=== PATIENT | female | born 1960 | race Caucasian/White ===

== ENCOUNTER 2021-04-09 10:42 | Outpatient (REF) | payer MEDICAID, SELFPAY ==
[2021-04-13 22:27] LABS: Stone Source KIDNEY STONE
== END 2021-04-09 10:43 | disposition home or self-care (01) ==
LOC: HO.LNP 10:42
PROVIDERS: Urology; PCP Internal Medicine Sports Medicine
DX: N20.0 Calculus of kidney (principal); Z87.442 Personal history of urinary calculi
CPT/HCPCS: 51798; 81002; 82365; 88300; 99212

== ENCOUNTER → 2021-07-16 13:01 | Outpatient (BNVA) | payer MEDICAID, SELFPAY | PROVIDERS: PCP Internal Medicine Sports Medicine; Referring Provider Nurse Practitioner Family; Visit Provider Internal Medicine | DX: I25.10 Atherosclerotic heart disease of native coronary artery without angina pectoris (principal); R07.2 Precordial pain; I10 Essential (primary) hypertension; I25.2 Old myocardial infarction; Z82.49 Family history of ischemic heart disease and other diseases of the circulatory system; Z88.6 Allergy status to analgesic agent; Z88.0 Allergy status to penicillin; Z79.899 Other long term (current) drug therapy | CPT/HCPCS: 93005; 99202 ==

== ENCOUNTER → 2021-07-18 09:41 | Outpatient (BNVA) | payer MEDICAID, SELFPAY | PROVIDERS: PCP Nurse Practitioner Family; Visit Provider Nurse Practitioner Family | DX: M79.7 Fibromyalgia (principal); M96.1 Postlaminectomy syndrome, not elsewhere classified; M54.16 Radiculopathy, lumbar region; M47.816 Spondylosis without myelopathy or radiculopathy, lumbar region | CPT/HCPCS: 99202 ==

== ENCOUNTER 2021-08-02 13:46 | Outpatient (REF) | payer MEDICAID, SELFPAY ==
--- NOTE | ~2021-08-02 | US_ITS ---
EXAMINATION: US ABDOMEN COMPLETE CLINICAL INFORMATION: Family history of fatty liver. COMPARISON: None TECHNIQUE: Real-time imaging of the abdominal viscera. FINDINGS: PANCREAS: Not well visualized due to bowel gas ABDOMINAL AORTA: The proximal, mid, and distal segments are normal in caliber. INFERIOR VENA CAVA: Visualized portions are normal. LIVER: The liver is normal in size. The liver contour is normal. Liver echotexture is increased. No focal hepatic lesion. There is no intrahepatic biliary duct dilatation seen. GALLBLADDER: Normal. The gallbladder is physiologically distended without evidence of stones, sludge, polyps, wall thickening or pericholecystic fluid. COMMON BILE DUCT: Normal in caliber measuring 0.2 cm in diameter. RIGHT KIDNEY: There are multiple stones. Largest measures 1.1 x 0.5 x 0.8 cm in the upper pole. No hydronephrosis or focal parenchymal lesions. The kidney measures 9.7 cm in maximum dimension. LEFT KIDNEY: There are multiple stones. Largest measures 6 x 3 x 7 mm in the midpole. No hydronephrosis or focal parenchymal lesions. The kidney measures 10.0 cm in maximum dimension. SPLEEN: The spleen is slightly enlarged. The spleen measures 14.0 cm in maximum dimension. FREE FLUID: None. US/US abdomen complete IMPRESSION: Echogenic liver probably representing fatty infiltration. Enlarged spleen. Multiple bilateral renal stones. Limited visualization of the pancreas.
== END 2021-08-02 13:47 | disposition home or self-care (01) ==
LOC: HO.HMGCX 13:46
PROVIDERS: Visit Provider Nurse Practitioner Family
DX: K75.0 Abscess of liver (principal)
CPT/HCPCS: 76700

== ENCOUNTER → 2021-09-04 10:24 | Outpatient (BNVA) | payer MEDICAID, SELFPAY | PROVIDERS: PCP Nurse Practitioner Family; Referring Provider Nurse Practitioner Family; Visit Provider Internal Medicine Cardiovascular Disease | DX: R07.9 Chest pain, unspecified (principal); I10 Essential (primary) hypertension | CPT/HCPCS: 99212 ==

== ENCOUNTER 2021-12-26 09:55 | Outpatient (REF) | payer MEDICAID, SELFPAY ==
--- NOTE | ~2021-12-26 | MM_ITS ---
EXAMINATION: BONE DENSITOMETRY CLINICAL INDICATION: Osteoporosis. COMPARISON: None (current study represents initial baseline exam). TECHNIQUE: Using a [employer] DXA System (software version: 13.1) manufactured by [employer], dual-energy x-ray absorptiometry was performed of the lumbar spine and left hip. The images are of good technical quality. Summary results are attached. FINDINGS: AP SPINE L1-L2 (excluding L3 and L4): The data of L1-L4 has been changed to exclude the L3 and L4 vertebral bodies, because fusion hardware at these levels may cause overestimation of lumbar spine density. BMD 1.173 g/cm2, Z-score 1.3, T-score 0.1, normal. LEFT FEMUR, NECK: BMD 0.833 g/cm2, Z-score -0.2, T-score -1.5, osteopenia. LEFT FEMUR, TOTAL: BMD 1.066 g/cm2, Z-score 1.4, T-score 0.5, normal. IDENTIFIED RISK FACTORS: Rheumatoid arthritis. Osteoporosis. Renal disease. Menopause. Hysterectomy. Bilateral oophorectomy. HISTORY OF FRACTURE: None listed. MEDICATIONS: Vitamin D. MM/XR DEXA axial skeleton IMPRESSION: 1. DIAGNOSIS: Osteopenia based on the lowest T-score value of -1.5 in the femoral neck applying World Health Organization criteria. 2. 10-YEAR FRACTURE RISK PREDICTION, FRAX: Major osteoporotic fracture (clinical spine, forearm, hip or shoulder) 5.6%. Hip fracture 0.5%. 3. Treatment Recommendations: NOF guidelines recommend consideration for treatment in postmenopausal women and men age 50 and older presenting with the following: -A hip or vertebral (clinical or morphometric) fracture. -T-score less than or equal to -2.5 at the femoral neck or spine after appropriate evaluation to exclude secondary causes. -Low bone mass at the hip or spine and a 10-year fracture probability by FRAX of greater than or equal to 3% for hip fracture or greater than or equal to 20% for major osteoporotic fracture based on the [place] adapted WHO algorithm. 4. Other Recommendations: All treatment decisions require clinical judgment and consideration of individual patient factors, including patient preferences, comorbidities, previous drug use, risk factors not captured in the FRAX model (e.g. frailty, falls, vitamin D deficiency, increased bone turnover, interval significant decline in bone density) and possible under or overestimation of fracture risk by FRAX. Additional medical evaluation for secondary cause of low bone mineral density may be appropriate. FUTURE SCAN RECOMMENDATION: People with diagnosed cases of osteoporosis or at high risk for fracture should have regular bone mineral density tests. For patients eligible for Medicare, routine testing is allowed once every 2 years. The testing frequency can be increased to one year for patients who have rapidly progressing disease, those who are receiving or discontinuing medical therapy to restore bone mass, or have additional risk factors.
== END 2021-12-26 09:56 | disposition home or self-care (01) ==
LOC: HO.MAMMO 09:55
PROVIDERS: PCP Registered Nurse; Visit Provider Registered Nurse
DX: Z13.820 Encounter for screening for osteoporosis (principal); M81.0 Age-related osteoporosis without current pathological fracture; Z78.0 Asymptomatic menopausal state
CPT/HCPCS: 77080

== ENCOUNTER 2022-01-28 17:30 | Outpatient (REF) | payer MEDICAID, SELFPAY | END 2022-01-28 17:31 | disposition home or self-care (01) | LOC: HO.HOSX 17:30 | PROVIDERS: Visit Provider Orthopaedic Surgery | DX: Z13.89 Encounter for screening for other disorder (principal) ==

== ENCOUNTER 2022-02-10 11:12 | Outpatient (REF) | payer MEDICAID, SELFPAY ==
--- NOTE | ~2022-02-10 | XR_ITS ---
EXAMINATION: XR HAND, RIGHT CLINICAL INFORMATION: Right hand pain COMPARISON: None TECHNIQUE: PA, lateral, and oblique views of the right hand. FINDINGS: Some minimal degenerative changes are seen at the DIP joints and the first metacarpal carpal joint. No fractures or subluxations are seen. In the area of the patient's pain, no significant abnormality is detected. XR/XR hand RT min 3V IMPRESSION: Mild degenerative changes as described above. No acute finding.
== END 2022-02-10 11:13 | disposition home or self-care (01) ==
LOC: HO.HOSX 11:12
PROVIDERS: Visit Provider Orthopaedic Surgery
DX: Z13.89 Encounter for screening for other disorder (principal)

== ENCOUNTER → 2022-02-12 10:52 | Outpatient (BNVA) | payer MEDICAID, SELFPAY | PROVIDERS: PCP Registered Nurse; Visit Provider Orthopaedic Surgery | DX: M65.311 Trigger thumb, right thumb (principal) | CPT/HCPCS: 73130; 99202 ==

== ENCOUNTER 2022-03-05 09:52 | Outpatient (REF) | payer MEDICAID, SELFPAY ==
--- NOTE | ~2022-03-05 | MM_ITS ---
EXAMINATION: MM SCREENING DIGITAL BREAST TOMOSYNTHESIS, BILATERAL CLINICAL INFORMATION: Screening. Asymptomatic. The lifetime risk of breast cancer based on the Tyrer-Cuzick Model is 5%. COMPARISON: Outside mammography: 02/02/2021, 02/20/2020, 01/09/2020 ([facility]) TECHNIQUE: Digital breast tomosynthesis is performed in both the craniocaudal and mediolateral oblique views along with computer-aided detection (CAD). Synthesized 2D images are generated from the tomosynthesis. FINDINGS: The breasts are almost entirely fatty (ACR BI-RADS breast composition Category a). Background stromal markings are similar to outside studies. There is no interval developing density or architectural abnormality. No abnormal calcifications. Again, there are scattered predominantly ductal secretory calcifications. Right breast has biopsy clip marker mid lower inner quadrant. The axilla and skin contours are unremarkable. MM/MM tomosynthesis screening BI IMPRESSION: No mammographic evidence of malignancy. ASSESSMENT: BI-RADS 2: Benign RECOMMENDATION: Routine annual mammography screening. This patient's information was entered into a reminder system with a target due date for their next mammogram.
== END 2022-03-05 09:53 | disposition home or self-care (01) ==
LOC: HO.MAMMO 09:52
PROVIDERS: PCP Registered Nurse; Visit Provider Registered Nurse
DX: Z12.31 Encounter for screening mammogram for malignant neoplasm of breast (principal)
CPT/HCPCS: 77063; 77067

== ENCOUNTER → 2022-04-16 12:42 | Outpatient (BNVA) | payer MEDICAID, SELFPAY | PROVIDERS: PCP Registered Nurse; Referring Provider Registered Nurse; Visit Provider Internal Medicine | DX: R07.9 Chest pain, unspecified (principal); I10 Essential (primary) hypertension | CPT/HCPCS: 99212 ==

== ENCOUNTER → 2022-06-05 13:38 | Outpatient (BNV) | payer MEDICAID, SELFPAY | PROVIDERS: PCP Registered Nurse; Visit Provider Internal Medicine | DX: D69.6 Thrombocytopenia, unspecified (principal); R16.1 Splenomegaly, not elsewhere classified | CPT/HCPCS: 99204; 99213; 99214 ==

== ENCOUNTER 2022-06-16 09:05 | Outpatient (REF) | payer MEDICAID, SELFPAY | END 2022-06-16 09:06 | disposition home or self-care (01) | LOC: HO.XRAY 09:05 | PROVIDERS: PCP Registered Nurse; Visit Provider Internal Medicine | DX: Z13.89 Encounter for screening for other disorder (principal) ==

== ENCOUNTER 2022-06-16 09:15 | Outpatient (REF) | payer MEDICAID, SELFPAY ==
--- NOTE | ~2022-06-16 | US_ITS ---
EXAMINATION: US ABDOMEN COMPLETE CLINICAL INFORMATION: Splenomegaly?, thrombocytopenia. COMPARISON: Ultrasound abdomen complete 08/02/2021. TECHNIQUE: Real-time imaging of the abdominal viscera. FINDINGS: PANCREAS: Normal. ABDOMINAL AORTA: The proximal, mid, and distal segments are normal in caliber. INFERIOR VENA CAVA: Visualized portions are normal. LIVER: The liver is normal in size. The liver contour is normal. There is diffuse increased liver parenchymal echogenicity, consistent with infiltrative hepatocellular disease. No focal hepatic lesion. There is no intrahepatic biliary duct dilatation seen. GALLBLADDER: Normal. The gallbladder is physiologically distended without evidence of stones, sludge, polyps, wall thickening or pericholecystic fluid. COMMON BILE DUCT: Normal in caliber measuring 0.3 cm in diameter. RIGHT KIDNEY: There are 4 calculi measuring up to 0.8 cm with no evidence of obstruction. No hydronephrosis or focal parenchymal lesions. The kidney measures 9.2 cm in maximum dimension. LEFT KIDNEY: There are 2 calculi measuring up to 0.8 cm without evidence of obstruction. No hydronephrosis or focal parenchymal lesions. The kidney measures 9.2 cm in maximum dimension. SPLEEN: Enlarged. The spleen measures 13.8 cm in maximum dimension. FREE FLUID: None. US/US abdomen complete IMPRESSION: Diffuse increased liver parenchymal echogenicity consistent with hepatocellular disease, most commonly due to fatty infiltration. Splenomegaly measuring 13.8 cm. Bilateral renal calculi without evidence of obstruction.
== END 2022-06-16 09:16 | disposition home or self-care (01) ==
LOC: HO.US 09:15
PROVIDERS: Visit Provider Internal Medicine
DX: R16.1 Splenomegaly, not elsewhere classified (principal); D69.6 Thrombocytopenia, unspecified
CPT/HCPCS: 76700

== ENCOUNTER 2022-10-15 10:43 | Outpatient (REF) | payer MEDICAID, SELFPAY ==
[2022-10-15 14:04] LABS: Estimated Average Glucose 108 mg/dL; Hemoglobin A1c % 5.4 %
[2022-10-15 14:22] LABS: Cholesterol 135 mg/dL; HDL Cholesterol 55 mg/dL; LDL Cholesterol Calculated 70 mg/dl; Triglycerides 53 mg/dL
[2022-10-15 14:30] LABS: ~HepC Num1 0.21 S/CO (0.00-0.79); ~Hepatitis C Antibody Nonreactive (Nonreactive)
[2022-10-15 14:54] LABS: Syphilis Screen Nonreactive (Nonreactive)
[2022-10-18 12:44] LABS: HIV RNA PCR Qn Copies NOT DETECTED copies/mL (NOT DETECTED); HIV RNA PCR Qn Log Copies NOT DETECTED (NOT DETECTED)
== END 2022-10-15 10:44 | disposition home or self-care (01) ==
LOC: HO.HHCL 10:43
PROVIDERS: Visit Provider Registered Nurse
DX: Z00.00 Encounter for general adult medical examination without abnormal findings (principal); Z11.4 Encounter for screening for human immunodeficiency virus [HIV]; Z11.3 Encounter for screening for infections with a predominantly sexual mode of transmission
CPT/HCPCS: 36415; 80061; 83036; 86780; 86803; 87536

== ENCOUNTER 2022-11-03 20:23 | Outpatient (REF) | payer MEDICAID, SELFPAY | END 2022-11-03 20:24 | disposition home or self-care (01) | LOC: HO.HHCL 20:23 | PROVIDERS: Visit Provider Advanced Practice Midwife | DX: R82.90 Unspecified abnormal findings in urine (principal) | CPT/HCPCS: 87086; 87088; 87186 ==

== ENCOUNTER 2022-11-03 20:54 | Outpatient (REF) | payer MEDICAID, SELFPAY ==
[2022-11-07 06:10] LABS: HPV mRNA E6/E7 rflx Not Detected (Not Detected)
== END 2022-11-03 20:55 | disposition home or self-care (01) ==
LOC: HO.HHCLNP 20:54
PROVIDERS: Visit Provider Advanced Practice Midwife
DX: Z12.4 Encounter for screening for malignant neoplasm of cervix (principal)
CPT/HCPCS: 87624; 88142

== ENCOUNTER 2022-12-26 16:12 | Outpatient (REF) | payer MEDICAID, SELFPAY | END 2022-12-26 16:13 | disposition home or self-care (01) | LOC: HO.CHCLNP 16:12 | PROVIDERS: Visit Provider Registered Nurse | DX: J02.9 Acute pharyngitis, unspecified (principal) | CPT/HCPCS: 87070; 87147 ==

== ENCOUNTER 2023-03-27 13:32 | Outpatient (REF) | payer MEDICAID, SELFPAY ==
--- NOTE | 2023-03-27 14:44 | MHC.AU.MED ---
Medical Clearance for Hearing Instrumentation Date: 03/27/23 Patient Name: Santa Joshi Date of : 1960 Primary Care Provider: JADE Ambriz We have seen your patient on 03/27/23 and have determined that they are a candidate for amplification (See accompanying report). Specifically, they would benefit from: Hearing aid use in both ears There is a statute that addresses Medical Evaluation Requirements prior to fitting a patient with a hearing aid. According to [place] statute 265 CMR:6.03(1), (a) General. Except as provided in 265 CMR 6.03(1)(b), a performance tester shall not sell a hearing aid unless the prospective user has presented to the performance tester a written statement signed by a licensed physician that states that the patient's hearing loss has been medically evaluated and the patient may be considered a candidate for a hearing aid. The medical evaluation must have taken place within the preceding six months. Please note: Due to the [place] Statute referenced above, we cannot accept a signature other than that of a licensed physician. WREATH MAKER and PA signatures cannot be accepted. I am in agreement with the above recommendation. There is no medical contraindication for hearing instrumentation. Physician Signature Date Physician Name (Printed)
--- NOTE | 2023-03-27 15:38 | MHC.AU.HA1 ---
Hearing Aid Evaluation Date of Visit: 03/27/23 Historical Information: Description of Hearing: Within normal sloping to moderate rising to mild sensorineural hearing loss, bilaterally. Summary: Santa is ready to pursue amplification to help ease some of her communication difficulties. Santa reported trouble hearing at medical appointments, on the telephone, and when someone whispers to her at mosque. She is hoping to hear the television better as well. Discussed styles. Santa opted to trial rechargeable RITE hearing aids compatible with her Android cellphone. Overall, she is not interested in bluetooth capabilities; however, if it helps her hear better on the telephone, she may learn to use it. Hearing Aid Prescription: Based on the individual?s shared listening needs, communication environments, dexterity, desire for connectivity, and personal preferences, the following prescription for amplification has been made: Right ear: Make, Model, Color: Phonak Audeo L70-R Color: Silver Valiente Battery Size: Rechargeable Hand Worker/Slim Tube: 1M Type of Earmold/Dome/CShell/SlimTip: Small vented dome Left ear: Left ear prescription to be same as Right Hearing Aid above: Make, Model, Color: Phonak Audeo L70-R Color: Silver Valiente Battery Size: Rechargeable Hand Worker/Slim Tube: 1M Type of Earmold/Dome/CShell/SlimTip: Small vented dome Accessories/Assistive Technology: Hydraulic Jack Mechanic Plan of Care: Patient wishes to purchase hearing aids as prescribed Action Taken/Action Needed: Medical Clearance to be requested from PCP/ENT. Hearing Instrument Fitting to be scheduled when materials arrive Primary Diagnosis: H90.3 Bilateral Sensorineural Hearing Loss Signature: Provider: Cuate Avilez, [facility]
== END 2023-03-27 13:33 | disposition home or self-care (01) ==
LOC: HO.SH 13:32
PROVIDERS: Visit Provider Registered Nurse
DX: Z01.118 Encounter for examination of ears and hearing with other abnormal findings (principal); Z46.1 Encounter for fitting and adjustment of hearing aid; H90.3 Sensorineural hearing loss, bilateral
CPT/HCPCS: 92557; 92591

== ENCOUNTER → 2023-05-02 10:30 | Outpatient (BNV) | payer MEDICAID, SELFPAY | PROVIDERS: PCP Registered Nurse; Visit Provider Radiology Diagnostic Radiology | DX: Z12.31 Encounter for screening mammogram for malignant neoplasm of breast (principal) | CPT/HCPCS: 77063; 77067 ==

== ENCOUNTER 2023-05-02 10:35 | Outpatient (REF) | payer MEDICAID, SELFPAY ==
--- NOTE | ~2023-05-02 | MM_ITS ---
EXAMINATION: MM SCREENING DIGITAL BREAST TOMOSYNTHESIS, BILATERAL CLINICAL INFORMATION: Screening. Asymptomatic. COMPARISON: Mammography: This study is compared with prior exams dating back to 2020. TECHNIQUE: Digital breast tomosynthesis is performed in both the craniocaudal and mediolateral oblique views along with computer-aided detection (CAD). Synthesized 2D images are generated from the tomosynthesis. FINDINGS: There are scattered areas of fibroglandular density (ACR BI-RADS breast composition Category b). There are no significant masses, abnormal calcifications, or other abnormalities. Few, bilateral, unchanged, benign secretory calcifications are present in each breast. There is a tissue marker present at the inferior aspect of the right breast. MM/MM tomosynthesis screening BI IMPRESSION: No mammographic evidence of malignancy. ASSESSMENT: BI-RADS BI-RADS 2 - Benign Findings RECOMMENDATION: Routine annual mammography screening. 1 year F/U This examination should not preclude the clinical evaluation of a suspicious palpable abnormality. This patient's information was entered into a reminder system with a target due date for their next mammogram.
== END 2023-05-02 10:36 | disposition home or self-care (01) ==
LOC: HO.MAMMO 10:35
PROVIDERS: PCP Registered Nurse; Visit Provider Registered Nurse
DX: Z12.31 Encounter for screening mammogram for malignant neoplasm of breast (principal)
CPT/HCPCS: 77063; 77067

== ENCOUNTER 2023-05-08 15:00 | Outpatient (REF) | payer MEDICAID, SELFPAY ==
--- NOTE | 2023-05-11 09:12 | MHC.AU.HA2 ---
Hearing Instrument Fitting- Adult- Binaural Date of Visit: 05/08/23 Hearing Instruments Dispensed: Right Ear: Make, Model, Color, Serial Number: Zahraa Horvath L70-R SN: [id number] Color: Silver Valiente Jig Filler Repair Warranty: 05/26/2026 Jig Filler Loss and Damage Warranty: 05/26/2026 [facility] Service Plan: 05/08/2024 Battery Size: Rechargeable Film Printer/Slim Tube: 0M Earmold/Dome/CShell/SlimTip: Small vented dome with retention tail Type of Wax Guard: CeruShield Left Ear: Make, Model, Color, Serial Number: Zahraa Wernero L70-R SN: [id number] Color: Silver Valiente Jig Filler Repair Warranty: 05/26/2026 Jig Filler Loss and Damage Warranty: 05/26/2026 [facility] Service Plan: 05/08/2024 Battery Size: Rechargeable Film Printer/Slim Tube: 0M Earmold/Dome/CShell/SlimTip: Small vented dome with retention tail Type of Wax Guard: CeruShield Accessories/Assistive Technology: Phonak Tafe Teacher Ease SN: [id number] Summary of Fitting: Performed feedback analyzer and real ear measures. Comfortable at real ear settings. Discussed care, use, and rechargeability including manually turning on/off, volume control use, and changing domes and wax guards. Practiced insertion and removal. Briefly discussed bluetooth capabilities; however, did not pair to cell phone as Santa is not interested at this time. She may consider pairing to her cellphone to help with phone calls, if needed. Recommendations: A hearing instrument follow-up was scheduled. Diagnosis Code(s): Primary Diagnosis: H90.3 Bilateral Sensorineural Hearing Loss Signature: Provider: Cuate Avilez, [facility]
== END 2023-05-08 15:01 | disposition home or self-care (01) ==
LOC: HO.HAP 15:00
PROVIDERS: Visit Provider Registered Nurse
DX: Z46.1 Encounter for fitting and adjustment of hearing aid (principal); H90.3 Sensorineural hearing loss, bilateral
CPT/HCPCS: V5011; V5020; V5160; V5261

== ENCOUNTER 2023-06-05 13:19 | Outpatient (REF) | payer MEDICAID, SELFPAY | END 2023-06-05 13:20 | disposition home or self-care (01) | LOC: HO.HAP 13:19 | PROVIDERS: Visit Provider Registered Nurse | DX: Z13.89 Encounter for screening for other disorder (principal) ==

== ENCOUNTER 2023-12-15 09:18 | Outpatient (REF) | payer MEDICAID, SELFPAY ==
[2023-12-15 14:05] LABS: MANUAL DIFF FLAG NO
[2023-12-15 14:17] LABS: Basophils Percent Auto 0.6 % (0-2); Eosinophils Absolute Auto 0.1 X10*3/uL (0.0-0.4); Eosinophils Percent Auto 1.4 % (0-4); Hematocrit 39.8 % (37.0-47.0); Hemoglobin 13.9 g/dl (12.0-16.0); Imm Gran Abs Auto 0.04 X10*3/uL (0.00-0.03); Imm Gran Pct Auto 1.1 % (0.0-0.4); Lymphocytes Absolute Auto 1.1 X10*3/uL (1.2-4.9); Mean Corpuscular HGB Conc 34.9 g/dl (31.0-35.0); Mean Corpuscular Hemoglobin 31.2 pg (27.0-33.0); Mean Corpuscular Volume 89.2 fL (80.0-98.0); Mean Platelet Volume 10.5 fL (9.4-12.3); Monocytes Absolute Auto 0.2 X10*3/uL (0.1-1.2); Monocytes Percent Auto 5.7 % (2-11); Neutrophils Absolute Auto 2.1 x10*3/uL (2.0-8.3); Neutrophils Percent Auto 59.2 % (45-73); Red Blood Count 4.46 X10*6/uL (4.20-5.50); Red Cell Distribution Width 14.2 % (11.0-16.0); White Blood Count 3.5 X10*3/uL (4.8-10.8)
[2023-12-15 14:21] LABS: Platelet Count 79 X10*3/uL (160-400)
[2023-12-15 14:37] LABS: Alanine Aminotransferase 30 U/L (0-31); Albumin Level 4.2 g/dL (3.5-5.0); Alkaline Phosphatase 106 U/L (39-117); Anion Gap 15 (12-20); Aspartate Amino Transferase 35 U/L (5-31); Blood Urea Nitrogen 15 mg/dL (9-16); Calcium 10.1 mg/dL (8.4-10.2); Carbon Dioxide 25 mmol/L (22-29); Chloride 104 mmol/L (96-108); Cholesterol 143 mg/dL (<200); Estimated Glomerular Filt Rate > 60; Glucose Random 160 mg/dL (60-115); HDL Cholesterol 61 mg/dL (>40); LDL Cholesterol Calculated 68 mg/dL (<100); Potassium 3.6 mmol/L (3.3-5.1); Sodium 140 mmol/L (135-145); Total Protein 8.2 g/dL (6.5-8.0); Triglycerides 74 mg/dL (<150)
[2023-12-15 14:43] LABS: Estimated Average Glucose 111 mg/dL; Hemoglobin A1c % 5.5 % (<6.0)
[2023-12-15 14:54] LABS: TSH reflex Free T4 2.14 uIU/mL (0.32-4.0)
[2023-12-16 04:38] LABS: Syphilis Screen Nonreactive (Nonreactive)
[2023-12-16 04:53] LABS: ~HepC Num1 0.17 S/CO (0.00-0.79); ~Hepatitis C Antibody Nonreactive (Nonreactive)
== END 2023-12-15 09:19 | disposition home or self-care (01) ==
LOC: HO.CHCLDS 09:18
PROVIDERS: Visit Provider Registered Nurse
DX: Z00.00 Encounter for general adult medical examination without abnormal findings (principal)
CPT/HCPCS: 36415; 80053; 80061; 83036; 84443; 85025; 86780; 86803

== ENCOUNTER 2024-01-15 08:57 | Outpatient (REF) | payer MEDICAID, SELFPAY ==
--- NOTE | ~2024-01-15 | XR_ITS ---
EXAMINATION: XR KNEE LEFT 3 VIEWS CLINICAL INFORMATION: Chronic bilateral knee pain. COMPARISON: None available TECHNIQUE: Three views of the left knee. FINDINGS: No fracture or joint effusion. Alignment is anatomic. Joint spaces are maintained. No abnormal soft tissue calcification. XR/XR knee LT 3V IMPRESSION: Normal left knee. Electronically signed by: Fer Maher MD 03/22/2024 10:18 AM TERRIE
--- NOTE | ~2024-01-15 | XR_ITS ---
EXAMINATION: XR KNEE RIGHT 3 VIEWS CLINICAL INFORMATION: Acute on chronic bilat knee pain. COMPARISON: None available TECHNIQUE: Three views of the right knee. FINDINGS: No fracture or joint effusion. Alignment is anatomic. Joint spaces are maintained. No abnormal soft tissue calcification. XR/XR knee RT 3V IMPRESSION: Normal right knee. Electronically signed by: Maciej Poole MD 03/17/2024 11:34 AM EST
--- NOTE | ~2024-01-15 | MM_ITS ---
EXAMINATION: BONE DENSITOMETRY CLINICAL INDICATION: 62-year-old postmenopausal female with history of osteoporosis. COMPARISON: Baseline BD dated 12/26/2021. TECHNIQUE: Using a [employer] DXA System (software version: 13.1) manufactured by [employer], dual-energy x-ray absorptiometry was performed of the lumbar spine and left hip. The images are of good technical quality. Summary results are attached. FINDINGS: LEFT FEMUR, NECK: Current: BMD 0.890 g/cm2, Z-score 0.2, T-score -1.1, osteopenia. Baseline: BMD 0.833 g/cm2. LEFT FEMUR, TOTAL: Current: BMD 1.037 g/cm2, Z-score 1.2, T-score 0.2, normal, 2.7% decrease from baseline (<5% change is not significant). Baseline: BMD 1.066 g/cm2. AP SPINE L1-L2 (excluding L3 and L4): The data of L1-L4 has been changed to exclude the L3 and L4 vertebral bodies, because significant degenerative change at these levels may cause overestimation of lumbar spine density. Current: BMD 1.111 g/cm2, Z-score 0.8, T-score -0.5, normal, 5.3% decrease from baseline (<5% change is not significant). Baseline: BMD 1.173 g/cm2. IDENTIFIED RISK FACTORS: Hyperparathyroid, menopause, osteoporosis. HISTORY OF FRACTURE: None listed. MEDICATIONS: Vitamin D. MM/XR DEXA axial skeleton IMPRESSION: 1. DIAGNOSIS: Osteopenia based on the lowest T-score value of -1.1 in the femoral neck applying World Health Organization criteria. 2. 10-YEAR FRACTURE RISK PREDICTION, FRAX: Major osteoporotic fracture (clinical spine, forearm, hip or shoulder) 4.1%. Hip fracture 0.3%. 3. Treatment Recommendations: NOF guidelines recommend consideration for treatment in postmenopausal women and men age 50 and older presenting with the following: -A hip or vertebral (clinical or morphometric) fracture. -T-score less than or equal to -2.5 at the femoral neck or spine after appropriate evaluation to exclude secondary causes. -Low bone mass at the hip or spine and a 10-year fracture probability by FRAX of greater than or equal to 3% for hip fracture or greater than or equal to 20% for major osteoporotic fracture based on the [place] adapted WHO algorithm. 4. Other Recommendations: All treatment decisions require clinical judgment and consideration of individual patient factors, including patient preferences, comorbidities, previous drug use, risk factors not captured in the FRAX model (e.g. frailty, falls, vitamin D deficiency, increased bone turnover, interval significant decline in bone density) and possible under or overestimation of fracture risk by FRAX. Additional medical evaluation for secondary cause of low bone mineral density may be appropriate. FUTURE SCAN RECOMMENDATION: People with diagnosed cases of osteoporosis or at high risk for fracture should have regular bone mineral density tests. For patients eligible for Medicare, routine testing is allowed once every 2 years. The testing frequency can be increased to one year for patients who have rapidly progressing disease, those who are receiving or discontinuing medical therapy to restore bone mass, or have additional risk factors. Electronically signed by: Tia Elena MD 01/21/2024 11:07 AM EDT
== END 2024-01-15 08:58 | disposition home or self-care (01) ==
LOC: HO.MAMMO 08:57
PROVIDERS: PCP Registered Nurse; Visit Provider Registered Nurse
DX: M85.80 Other specified disorders of bone density and structure, unspecified site (principal); Z78.0 Asymptomatic menopausal state; M25.561 Pain in right knee; M25.562 Pain in left knee; G89.29 Other chronic pain
CPT/HCPCS: 73562; 77080

== ENCOUNTER 2024-02-05 09:24 | Outpatient (REF) | payer MEDICAID, SELFPAY | END 2024-02-05 09:25 | disposition home or self-care (01) | LOC: HO.US 09:24 | PROVIDERS: PCP Registered Nurse; Visit Provider Registered Nurse | DX: K76.0 Fatty (change of) liver, not elsewhere classified (principal) | CPT/HCPCS: 76705; 76981 ==

== ENCOUNTER 2024-05-13 11:20 | Outpatient (REF) | payer MEDICAID, SELFPAY | END 2024-05-13 11:21 | disposition home or self-care (01) | LOC: HO.MAMMO 11:20 | PROVIDERS: PCP Registered Nurse; Visit Provider Registered Nurse | DX: Z12.31 Encounter for screening mammogram for malignant neoplasm of breast (principal) ==

== ENCOUNTER → 2024-05-13 11:30 | Outpatient (BNV) | payer MEDICAID, SELFPAY | PROVIDERS: PCP Registered Nurse; Visit Provider Internal Medicine | DX: Z12.31 Encounter for screening mammogram for malignant neoplasm of breast (principal) | CPT/HCPCS: 77063; 77067 ==

== ENCOUNTER 2024-06-27 13:39 | Outpatient (REF) | payer MEDICAID, SELFPAY | END 2024-06-27 13:40 | disposition home or self-care (01) | LOC: HO.CHCLNP 13:39 | PROVIDERS: Visit Provider Student in an Organized Health Care Education/Training Program | DX: K21.9 Gastro-esophageal reflux disease without esophagitis (principal) | CPT/HCPCS: 87338 ==

== ENCOUNTER 2024-08-19 09:45 | Outpatient (AMB) | payer MEDICAID, SELFPAY ==
--- NOTE | 2024-08-19 09:59 | A.OFFVIS_ITS ---
Vital Signs 08/19/24 10:01 Height 4 ft 11 in Weight 140 lb BMI 28.3 BP 128/54 L Blood Pressure Location Rt brachial Position Sitting Pulse 86 Pulse Source Pulse Oximeter Pulse Oximetry (%) 96 Oxygen Delivery Method Room Air Intake Visit Reasons: Colonoscopy Screening Intake Note: NEW PATIENT for repeat colo screening. Last colo unspecified. CC; Pt denies any GI sx or concerns at this time. Pt last colo reported to be ~ 20 years ago per pt. Gravure Press Operator Required: Yes Gravure Press Operator Services: Gravure Press Operator Offered & Declined Accompanied by: Daughter Allergies aspirin Allergy (Verified 08/19/24 10:05) Angioedema ondansetron [From Zofran] Allergy (Verified 08/19/24 10:05) Irritable Penicillins Allergy (Verified 08/19/24 10:05) Angioedema HPI HPI Colonoscopy Screening: Details: 63 year old? female with past medical history of thrombocytopenia, fibromyalgia, lumbar spondylosis, nephrolithiasis, status post subtotal parathyroidectomy, hypertension is here today for pre colonoscopy screening.? Patient was sent to us by her PCP.? ?Patient reports that last colonoscopy was over 20 years ago. Patient denies any gastrointestinal symptoms in the past or at present.? Patient reports occasional constipation once in a while uses Colace if constipated with good affect. Maternal cousins diagnosed with colorectal cancer. Patient's sister has to have colonoscopies every 5 years.? Denies history of difficulty with sedation or anesthesia in the past.? Negative for history of sleep apnea.? Denies any history of cardiac, renal, pulmonary, or hepatic disease.?? No history of infectious? diseases like hepatitis A, B, C, HIV or tuberculosis.? Patient is not on any anticoagulation [facility] Medical History History of kidney stones Thrombocytopenia Fibromyalgia [place]RA[place] positive Rosacea Osteopenia Nephrolithiasis HLD (hyperlipidemia) Fatty liver Primary osteoarthritis involving multiple joints Leukopenia Osteoporosis History of myocardial infarction Essential hypertension Surgical History History of parathyroidectomy S/P subtotal parathyroidectomy No pertinent past surgical history Family History Father No problems noted. Mother Heart disease Pacemaker Brother Heart attack Social History Patient Tobacco Use Status: Never used Tobacco service: No Current occupational status: unemployed and retired Current occupation: rt hand Review of Systems Const Denies weight gain and Denies weight loss ENT Reports no additional complaints, Denies dysphagia and Denies odynophagia Card Reports no additional complaints Resp Reports no additional complaints GI Denies abdominal pain, Denies belching, Denies melena, Denies bloating, Denies change in bowel habits, Denies dysphagia, Denies excessive flatus, Denies dyspepsia, Denies heartburn, Denies diarrhea, Denies loose stools, Denies nausea, Denies odynophagia and Denies vomiting Reports no additional complaints Musc Reports no additional complaints Neuro Reports no additional complaints Psych Reports no additional complaints Endo Reports no additional complaints Physical Exam Vital Signs: Last Vital Signs Pulse 86 08/19/24 10:01 BP 128/54 L 08/19/24 10:01 Pulse Ox 96 08/19/24 10:01 Oxygen Delivery Method Room Air 08/19/24 10:01 BMI result Body Mass Index 28.3 Const General: healthy appearing, no acute distress and well developed Nutritional Appearance: well nourished and obese Orientation/consciousness: patient oriented x3 Resp Effort & Inspection: normal respiratory effort, able to speak in complete sentences, no tracheal deviation and symmetric chest movement Auscultation: clear to auscultation bilaterally Cardio Rate: regular rate GI Inspection: Yes normal to inspection, No distended and Yes obesity Palpation (GI): Soft to palpation, not firm, nontender and No hepatosplenomegaly present Auscultation: normal bowel sounds General: Yes no CVA tenderness Back/Spine/Pelvis Back: no CVA tenderness Skin General skin exam: elasticity normal, turgor normal and dry skin Neuro General: patient oriented x3 Psych Appearance: grossly normal Mental Status: mental status grossly normal Results Reviewed Results Reviewed: ABDOMINAL ULTRASOUND WITH ELASTOGRAPHY FINDINGS: PANCREAS: The visualized pancreatic head and body are normal in appearance. The remainder of the pancreas is obscured from visualization by the overlying bowel gas. LIVER: Liver is increased in echotexture consistent with hepatic steatosis. The right lobe measures 14.0 cm in length. The left lobe measures 9.4 cm in length. No focal hepatic lesions Shear wave elastography provides a median stiffness of 2.1 m/s (reference: normal median stiffness is 0.81 - 1.22 m/s). The IQR/median stiffness to assess sampling precision is 0.22 (reference: optimal IQR/median stiffness is under 0.3). GALLBLADDER: The gallbladder is physiologically distended without evidence of stones, sludge, polyps, wall thickening or pericholecystic fluid. COMMON BILE DUCT: Normal in caliber measuring 0.5 cm in diameter. RIGHT KIDNEY: Multiple echogenic stones within the right kidney. The largest stone measures 8 mm in the lower pole No hydronephrosis. No focal masses The kidney measures 9.2 cm in maximum dimension. FREE FLUID: None. US/US abdomen ku w elastography IMPRESSION: 1. Liver stiffness suggestive of compensated advanced chronic liver disease 2. Nonobstructive right nephrolithiasis Assessment & Plan Assessment & Plan (1) Screen for colon cancer: Code(s): Z12.11 - Encounter for screening for malignant neoplasm of colon Plan Patient denies any GI, cardiac or respiratory symptoms.? Denies any issues with anesthesia in the past.? Denies any history of sleep apnea.? No history infectious diseases in the past or present.? Not on any anticoagulation therapy.? No family or personal history of colon cancer or polyps.? Patient denies melena, hematochezia, unintentional weight loss or ribbon like stools.? Discussed at length the pre-procedure,? prep, diet & medications as well as what to expect prior, during and after the procedure.?? Stressed the importance of good bowel prep.? Recommended the use of Vaseline or Calmoseptine OTC & baby wipes with bowel movements to promote comfort.? ?Patient verbalizes un derstanding and agrees to plan of care.? She was given the opportunity to ask questions and all questions answered.? We will see her after the procedure.? Orders: Orders Liver Fibrosis Pnl Today K76.0 - Fatty (change of) liver, not elsewhere classified Liver Panel Today R74.01 - Elevation of levels of liver transaminase levels Medications: New bisacodyl (Dulcolax (bisacodyl)) take 4 tabs at noon the day before your colonoscopy 20 mg (4 x 5 mg) PO ONCE 4 tabs 0RF 1 day Z12.11 - Encounter for screening for malignant neoplasm of colon polyethylene glycol 3350 (Miralax) As directed by gastroenterology department at [facility] 238 grams PO ONCE 238 grams 0RF Z12.11 - Encounter for screening for malignant neoplasm of colon Coding Level of Care Code New Pt Level 3 (75577) Diagnoses Screen for colon cancer Z12.11 Time Spent (min) 40 Comment 30 minutes spent with patient and additional 10 minutes spent reviewing her records
[2024-08-19 10:01] VITALS: BP 128/54; PULSE 86; O2SAT 96; BMI 28.3
--- OUTSIDE RECORDS SUMMARY | 2024-08-19 10:05 | XMS_ITS | Encounter Summary ---
Author Organization [employer] Address [address] [facility] 7[address] [place] [address] Care Team Providers Care Insurance Billing Specialist Name Role Phone Kendal Crandall Primary Care Provider Seth Martinez Unavailable Katia Graff MD Unavailable [phone] Lainey Crenshaw MD Unavailable [phone] Ladarius Call MD Unavailable Kimmie Salazar OD Unavailable [phone] Reason for Visit * Reason Comments Med Refill Encounter Details Date Type Department Care Team (Late st Contact Info) Description 11/06/2023 Refill [facility] MEDICINE [address] [place] [address] Kendal Crandall FNP [address] [place], [place] [phone] Social History Tobacco Use Types Packs/Day Years Used Date Smoking Tobacco: Never Passive Smoke Exposure: Never Smokeless Tobacco: Never Alcohol Use Standard Drinks/Week Comments Never 0 (1 standard drink = 0.6 oz pur e alcohol) Alcohol Answer Date Recorded Frequency of Alcohol Consumption Not on file 2023 Average Number of Drinks Not on file 024 Frequency of Binge Drinking Not on file 10/04 Score 0 2023 Depression Answer Date Recorded Patient Health Questionnaire-9 Score 6 12/26/2022 Housing Stability Answer Date Recorded What is your housing situation today? I have luna miller 10/12/[address] you li ve. Do you have problems with any of the following? None of the above 10/12/2023 Food Insecurity Answer Date Recorded Within the past 12 months, y ou worried that your food would run out before you got money to buy more: Never True 10/12/2023 Within the past 12 months,th e food you bought just didn't last and you didn't have enough money to get more: Never True 11/2023 Transportation Answer Date Recorded In the past 12 months, has l ack of transportation kept you from medical appts, meetings, work or from getting things needed for daily living? No 10/12/2023 Utilities Answer Date Recorded In the past 12 months, has t he electric, gas, oil or water company threatened to shut off services in your home? No 10/12/2023 Depression Answer Date Recorded Patient Health Questionnaire-2 Score 2 12/26/2022 Comments Unknown Sex and Gender Information Value Date Recorded Sex Assigned at Female 02/03/2022 10:39 AM EDT Legal Sex Female 10:39 AM EDT Gender Identity Female 02/03/2022 10:39 AM EDT Sexual Orientation Straight 02/03/2022 10 :39 AM EDT documented as of this encounter Plan of Treatment Upcoming Encounters Date Type Department Care Team (Late st Contact Info) Description 09/02/2024 10:30 AM EDT Office Visit [facility] OPTOMETRY [address] [place] [address] Romelia Cavazos, OD [address] [place] [address] 09/08/2024 9:30 AM EDT Clinical Support [facility] CHC MED & PEDS [address] [place] [address] Mary Geronimo, OWEN [address] [place] [address] 09/16/2024 11:15 AM EDT Office Visit [facility] MEDICINE [address] [place] [address] Dodie Nj MD [address] [place] [address] 11/11/2024 10:15 AM EDT Office Visit [facility] CHC MED & PEDS [address] [place] [address] Kendal Crandall FNP [address] [place], [place] documented as of this encounter Visit Diagnoses Not on filedocumented in this encounter Additional Health Concerns Assessment Noted Time PHQ-9 Depression Total Score: 6 12/27/19 23 2:43 PM EDT documented as of this encounter Care Teams Insurance Billing Specialist Relationship Specialty Start Date End Date Kendal Crandall FNP [address] [place] [address] PCP - General Family Medicine 11/30/21 Seth Martinez [address] [phone] Urology 02/26/24 Katia Graff MD [address] [place] [address] Hematology and Oncology 02/26/24 Lainey Crenshaw MD [address] [place] [address] Dr Noel [address] [place] [address] Neurology 02/28/24 Ladarius Call MD [address] [place] [address] 3rd [place] [address] Cardiology 06/06/24 Kimmie Salazar OD [address] [place] [address] Optometry 06/06/24 documented as of this encounter
--- OUTSIDE RECORDS SUMMARY | 2024-08-19 10:05 | XMS_ITS | Encounter Summary ---
Author Organization [employer] Address [address] [facility] 7t [place] [address] Care Team Providers Care Area Counselor Name Role Phone Kendal Crandall JADE Primary Care Provider [phone] Seth Martinez Unavailable Katia Graff MD Unavailable [phone] Lainey Crenshaw MD Unavailable Ladarius Call MD Unavailable [phone] Kimmie Salazar OD Unavailable Encounter Details Date Type Department Care Team (Late st Contact Info) Description 07/29/2024 Orders Only [facility] CHC MED & PEDS [address] [place] [address] Provider, MD Yvette Social History Tobacco Use Types Packs/Day Years [...] Answer Date Recorded Patient Health Questionnaire-9 Score 7 02/26/2024 Patient Health Questionnaire-9 Score 7 02/26/2024 Last PHQ-9: Questionnaire Data Not on file 1 04/27/2023 Housing Stability Answer Date Recorded What is [...] Answer Date Recorded Patient Health Questionnaire-2 Score 1 02/26/2024 Internet Access Answer Date Recorded Internet Access Q1 Yes 12/04/2023 Internet Access Q2 Not on file 12/04/2023 Comments No Sex and Gender Information Value Date Recorded Sex Assigned at Female 02/03/2022 10:39 AM EDT Legal Sex Female 10:39 AM EDT Gender Identity Female 02/03/2022 10:39 AM EDT Sexual Orientation Straight 02/03/2022 10 :39 AM EDT documented as of this encounter Plan of Treatment Upcoming Encounters Date Type Department Care Team (Late st Contact Info) Description 09/02/2024 10:30 AM EDT Office Visit [facility] OPTOMETRY [address] [place] [address] Romelia Cavazos, OD [address] [place] [address] 09/08/2024 9:30 AM EDT Clinical Support [facility] CHC MED & PEDS [address] [place] [address] Mary Geronimo, OWEN [address] [place] [address] 09/16/2024 11:15 AM EDT Office Visit [facility] MEDICINE [address] [place] [address] Dodie Nj MD [address] [place], [place] 11/11/2024 10:15 AM EDT Office Visit [facility] CHC MED & PEDS [address] [place], [place] [phone] RzaKendalJADE [address] [place], [place] documented as of this encounter Procedures Procedure Name Priority Date/Time Associated Diagnosis Comments CT ABDOMEN PELVIS WO CONTRAST Routine 07/27/2024 12:16 PM EDT documented in this encounter Results * CT Abdomen Pelvis w/o Contrast (07/27/2024 12:16 PM EDT) Anatomical Region Laterality Modality Body, Pelvis, Abdomen Computed T omography us Historical Provider MD MELGAR CT PROCEDURES Final R esult documented in this encounter Visit Diagnoses Not on filedocumented in this encounter Additional Health Concerns Assessment Noted Time PHQ-9 Depression Total Score: 7 02/26/20 9:58 AM EST documented as of this encounter Care Teams Area Counselor Relationship Specialty Start Date End Date Kendal Crandall FNP [address] [place], [place] PCP - General Family Medicine 11/30/21 Seth Martinez [address] [phone] Urology 02/26/24 Katia Graff MD [address] [place] [address] Hematology and Oncology 02/26/24 Lainey Crenshaw MD [address] [place] [address] Dr Nole [address] [place] [address] Neurology 02/28/24 Ladarius Call MD [address] [place] [address] 3rd Floor [place], [place] Cardiology 06/06/24 Kimmie Salazar OD [address] [facility] [place] [address] Optometry 06/06/24 documented as of this encounter
--- OUTSIDE RECORDS SUMMARY | 2024-08-19 10:05 | XMS_ITS | Encounter Summary ---
Author Organization [employer] Address [address] [facility] 7t [place] [address] Care Team Providers Care Inspector Repairer Sandstone Name Role Phone Kendal Crandall Primary Care Provider [phone] Seth Martinez Unavailable Katia Graff MD Unavailable [phone] Lainey Crenshaw MD Unavailable Ladarius Call MD Unavailable [phone] Kimmie Salazar OD Unavailable [phone] Reason for Visit * Reason Comments Med Change Request Encounter Details Date Type Department Care Team ([facility] Contact Info) Description 08/14/2024 Refill [facility] CHC MED & PEDS [address] [place], [place] [phone] Kendal Crandall FNP [address] [place], [place] [phone] Dry eyes Social History Tobacco Use Types Packs/Day Years [...] AM EDT documented as of this encounter Miscellaneous Notes * Telephone Encounter - Wing Sheryl RN - 08/15/2024 2:05 PM EDT There are none that can be billed due to the recall. The pt will have to pay out of pocket here at [facility] as well. Sarah at the pharmacy stated that as long as the recall is in effect, they cannot bill. * Telephone Encounter - Wing Sheryl RN - 08/15/2024 1:58 PM EDT Tc to [facility] pharamcy, they stated the artifical tears have been recalled due to the solution causing irritation and therefore cannot be billed. * Telephone Encounter - JADE Ambriz - 08/15/2024 12:18 PM EDT Please call to let her know that her [facility] pharmacy said they do not have the eyedrops available in stock for her to waste picker. I am going to send it to the [facility] pharmacy to see if covered. Please check in with [facility] pharmacist to see if goes through. Thank you. documented in this encounter Plan of Treatment Upcoming Encounters Date Type Department Care Team (Late st Contact Info) Description 09/02/2024 10:30 AM EDT Office Visit [facility] OPTOMETRY [address] [place] [address] Romelia Cavazos, OD [address] [place] [address] 09/08/2024 9:30 AM EDT Clinical Support [facility] MED & PEDS [address] [place] [address] Mary Geronimo RN [address] [place] [address] 09/16/2024 11:15 AM EDT Office Visit [facility] MEDICINE [address] [place] [address] Dodie Nj MD [address] [place] [address] 11/11/2024 10:15 AM EDT Office Visit [facility] MED & PEDS [address] [place] [address] Kendal Crandall FNP [address] [place] [address] documented as of this encounter Visit Diagnoses Diagnosis Dry eyes Unspecified tear film insufficiency documented in this encounter Additional Health Concerns Assessment Noted Time PHQ-9 Depression Total Score: 7 11/22/20 24 9:58 AM EST documented as of this encounter Care Teams Inspector Repairer Sandstone Relationship Specialty Start Date End Date Kendal Crandall FNP [address] [place] [address] PCP - General Family Medicine 11/30/21 Seth Martinez [address] [phone] Urology 02/26/24 Katia Graff MD [address] [place] [address] Hematology and Oncology 02/26/24 Lainey Crenshaw MD [address] [place] [address] [place] [address] Neurology 02/28/24 Ladarius Call MD [address] [place] [address] Drive 3rd [place] [address] Cardiology 06/06/24 Kimmie Salazar OD [address] [place] [address] Optometry 06/06/24 documented as of this encounter
--- OUTSIDE RECORDS SUMMARY | 2024-08-19 10:05 | XMS_ITS | Encounter Summary ---
Author Organization [employer] Address [address] [facility] 7t [place] [address] Care Team Providers Care Sharepoint Application Developer Name Role Phone Kendal Crandall Primary Care Provider Seth Martinez Unavailable Katia Graff MD Unavailable [phone] Lainey Crenshaw MD Unavailable Ladarius Call MD Unavailable [phone] Kimmie Salazar OD Unavailable [phone] Reason for Visit * Reason Onset Date Comments Med Refill 08/08/2024 Encounter Details Date Type Department Care Team (Late st Contact Info) Description 08/08/2024 Telephone [facility] MEDICINE [address] [place] [address] Kendal Crandall FNP [address] [place], [place] [phone] Med Refill Social History Tobacco Use Types Packs/Day Years [...] encounter Miscellaneous Notes * Telephone Encounter - Alison Angela - 08/08/2024 1:19 PM EDT TC from pt requesting medication refill. Medications needing refill : traMADol (Ultram) 50 MG tablet To be sent to: [facility]/pharmacy #[id number] - [place], [place] - [address] [facility] documented in this encounter Plan of Treatment Upcoming Encounters Date Type Department Care Team (Late st Contact Info) Description 09/02/2024 10:30 AM EDT Office Visit [facility] OPTOMETRY [address] [place] [address] Romelia Cavazos, OD [address] [place] [address] 09/08/2024 9:30 AM EDT Clinical Support [facility] MED & PEDS [address] [place] [address] Mary Geronimo RN 505 [place] [address] 09/16/2024 11:15 AM EDT Office Visit [facility] MEDICINE [address] [place] [address] Dodie Nj MD [address] [place] [address] 11/11/2024 10:15 AM EDT Office Visit [facility] MED & PEDS [address] [place] [address] Kendal Crandall FNP [address] [place] [address] documented as of this encounter Visit Diagnoses Not on filedocumented in this encounter Additional Health Concerns Assessment Noted Time PHQ-9 Depression Total Score: 7 02/26/20 24 9:58 AM EST documented as of this encounter Care Teams Sharepoint Application Developer Relationship Specialty Start Date End Date Kendal Crandall FNP [address] [place] [address] PCP - General Family Medicine 11/30/21 Seth Martinez [address] [phone] Urology 02/26/24 Katia Graff MD [address] [place] [address] Hematology and Oncology 02/26/24 Lainey Crenshaw MD [address] [place] [address] [place] [address] Neurology 02/28/24 Ladarius Call MD [address] [place] [address] 3rd [place] [address] Cardiology 06/06/24 Kimmie Salazar OD [address] [place] [address] Optometry 06/06/24 documented as of this encounter
--- OUTSIDE RECORDS SUMMARY | 2024-08-19 10:05 | XMS_ITS | Encounter Summary ---
Author Organization [employer] Address 75 [facility] 7t [place] [address] Care Team Providers Care Plant Floor Automation Manager Name Role Phone Kendal Crandall Primary Care Provider [phone] Seth Martinez Unavailable Katia Graff MD Unavailable [phone] Lainey Crenshaw MD Unavailable Ladarius Call MD Unavailable Kimmie Salazar OD Unavailable [phone] Reason for Visit * Reason Onset Date Comments Call Back Request 12/04/2023 Encounter Details Date Type Department Care Team (Late st Contact Info) Description 12/04/2023 Telephone [facility] MEDICINE [address] [place] [address] Kendal Crandall FNP [address] [place], [place] [phone] Call Back Request Social History Tobacco Use Types Packs/Day Years [...] is your housing situation today? I have lunadaylin miller 10/12/[address] you [...] Recorded Patient Health Questionnaire-2 Score 2 12/26/2022 Internet Access Answer Date Recorded Internet Access Q1 Yes 12/04/2023 Internet Access Q2 Not on file 12/04/2023 Comments Unknown Sex and Gender Information Value Date Recorded Sex Assigned at Female 02/03/2022 10:39 AM EDT Legal Sex Female 10:39 AM EDT Gender Identity Female 02/03/2022 10:39 AM EDT Sexual Orientation Straight 02/03/2022 10 :39 AM EDT documented as of this encounter Miscellaneous Notes * Telephone Encounter - Adam Gan - 12/04/2023 11:38 AM EDT Tc from pt calling in regards to TIRE SPECIALIST visit 01/03 stating she was informed that appt was 12/03 and is now requesting call back to clarify. Please contact pt at [phone]. documented in this encounter Plan of Treatment Upcoming Encounters Date Type Department Care Team (Late st Contact Info) Description 09/02/2024 10:30 AM EDT Office Visit [facility] OPTOMETRY [address] [place], [place] [phone] Romelia Cavazos, OD [address] [place], [place] [phone] 09/08/2024 9:30 AM EDT Clinical Support [facility] CHC MED & PEDS [address] [place], [place] [phone] Mary Geronimo, OWEN [address] [place], [place] 09/16/2024 11:15 AM EDT Office Visit [facility] MEDICINE [address] [place] [address] Dodie Nj MD [address] [place], [place] 11/11/2024 10:15 AM EDT Office Visit [facility] MED & PEDS [address] [place], [place] [phone] Kendal Crandall FNP [address] [place], [place] documented as of this encounter Visit Diagnoses Not on filedocumented in this encounter Additional Health Concerns Assessment Noted Time PHQ-9 Depression Total Score: 6 12/27/19 23 2:43 PM EDT documented as of this encounter Care Teams Plant Floor Automation Manager Relationship Specialty Start Date End Date Kendal Crandall FNP [address] [place], [place] PCP - General Family Medicine 11/30/21 Seth Martinez [address] [phone] Urology 02/26/24 Katia Graff MD [address] [place] [address] Hematology and Oncology 02/26/24 Lainey Crenshaw MD [address] [place] [address] Dr No[address] [place] [address] Neurology 02/28/24 Ladarius Call MD [address] 3rd [place] [address] Cardiology 06/06/24 Kimmie Salazar OD [address] [place] [address] Optometry 06/06/24 documented as of this encounter
--- OUTSIDE RECORDS SUMMARY | 2024-08-19 10:06 | XMS_ITS | Encounter Summary ---
Author Organization [facility] Address [address] [place] [address] Care Team Providers Care Chicken Hanger Name Role Phone Lauren Haile RN Primary Care Provider [phone] Encounter Details Date Type Department Care Team (Late st Contact Info) Description 07/14/[address] [facility] - Main Lab 299 [facility] [place] [address] Everett Wilson PA [address] [phone] Calculus of kidney Social History Tobacco Use Types Packs/Day Years Used Date Smoking Tobacco: Never Smokeless Tobacco: Never Alcohol Use Standard Drinks/Week Comments No 0 (1 standard drink = 0.6 oz pur e alcohol) Comments Unknown Sex and Gender Information Value Date Recorded Sex Assigned at Not on file Legal Sex Female 2:42 AM EST Gender Identity Not on file Sexual Orientation Not on file documented as of this encounter Plan of Treatment Not on file documented as of this encounter Procedures Procedure Name Priority Date/Time Associated Diagnosis Comments COMPLETE BLOOD COUNT Routine 07/14/2024 1:41 PM EDT Calculus of kidney documented in this encounter Results * (ABNORMAL) Complete blood count (07/14/2024 1:41 PM EDT) WBC 2.8(L) 4.8 - 10.8 K/[facility] LAB HEMETOLOGY METHOD 07/14/2024 7:45 PM EDT [facility] LAB RBC 4.40 3.80 - 4.80 M/mcL LAB HEMETOLOGY METHOD 07/14/2024 7:45 PM EDT [facility] LAB Hemoglobin 13.6 11.5 - 16.0 g/dL LAB HEMETOLOGY METHOD 07/14/2024 7:45 PM [facility] LAB Hematocrit 40.3 35.0 - 47.0 % LAB HEMETOLOGY METHOD 07/14/2024 7:45 PM [facility] LAB MCV 91.8 79.0 - 98.0 FL LAB HEMETOLOGY METHOD 07/14/[facility]24 7[facility] MCH 31.0 27.0 - 32.0 pcg LAB HEMETOLOGY METHOD 07/14/2024 7:45 PM [facility] LAB MCHC 33.7 32.0 - 37.0 g/dL LAB HEMETOLOGY METHOD 07/14/2024 7:45 PM [facility] LAB RDW 13.8 11.0 - 15.0 % LAB HEMETOLOGY METHOD 07/14/2024 7:45 PM [facility] LAB Platelets 69(L) 130 - 400 K/mcL LAB HEMETOLOGY METHOD 07/14/2024 7:45 PM [facility] LAB Comment:reviewed by slide MPV 11.4(H) 7.0 - 11.0 FL LAB HEMETOLOGY METHOD 07/14/2024 7:45 PM [facility] LAB NRBC 0.0 <1.0 % LAB HEMETOLOGY METHOD 07/14/2024 7:45 PM [facility] LAB NRBC Absolute 0.00 <0.10 K/mcL LAB HEMETOLOGY METHOD 07/14/2024 7:45 PM [facility] LAB Blood Venous blood specimen / Unknown 07/14/2024 1:41 PM EDT 07/14/2024 6:17 PM EDT us Everett GALARZA LAB BLOOD ORDERABLES Final Resul t [facility] [address] [place] [address], documented in this encounter Visit Diagnoses Diagnosis Calculus of kidney documented in this encounter Care Teams Chicken Hanger Relationship Specialty Start Date End Date Lauren Haile RN [address] [place] [phone] PCP - General 01/22/22 documented as of this encounter
--- OUTSIDE RECORDS SUMMARY | 2024-08-19 10:06 | XMS_ITS | Clinical Summary ---
Author Organization 299 [facility] Address [address] [place] [address] Phone Care Team Providers Care Senior Research Scientist Name Role Phone Lauren Haile RN Primary Care Provider [phone] Encounters Date Type Department Care Team Description 07/14/2024 Lab Requisition [facility] - Main Lab 299 [facility] [place] [address] Everett Wilson PA Calculus of kidney from Last 3 Months Surgical History Surgery Date Site/Laterality Comments BACK SURGERY 2010 PROCEDURE: HISTORICAL BACK SURGERY; COMMENT: disc removal OTHER SURGICAL HISTORY PROCEDURE: ANESTHESIA FOR SECTION PARATHYROIDECTOMY 2000 PROCEDURE: HISTORICAL PARATHYROIDECTOMY LITHOTRIPSY PROCEDURE: HISTORICAL LITHOTRIPSY BREAST BIOPSY PROCEDURE: BX BREAST; PERC NEEDLE CORE W/IMAG GUID; COMMENT: LT BREAST BX-FAT NECROSIS 2019 HAND SURGERY 05/23/2021 Left PROCEDURE: [place] UNLISTED PROCEDURE HANDS/FINGERS; COMMENT: Left long and left thumb trigger release with Dr. Monzon Medical History Medical History Date Comments Essential (primary) hypertension DX:Essential (primary) hypertension Mixed hyperlipidemia DX:Mixed hy perlipidemia Family History Medical History Relation Name Comments Other: lupus Aunt Leukemia Daughter Stomach cancer Father Hyperlipidemia Mother Breast cancer Neg Hx Relation Name Status Comments Aunt Daughter Alive Father Mother Social History Tobacco Use Types Packs/Day Years Used Date Smoking Tobacco: Never Smokeless Tobacco: Never Alcohol Use Standard Drinks/Week Comments No 0 (1 standard drink = 0.6 oz pur e alcohol) Comments Unknown Sex and Gender Information Value Date Recorded Sex Assigned at Not on file Legal Sex Female 2:42 AM EST Gender Identity Not on file Sexual Orientation Not on file Obstetrics History Last Filed Vital Signs Vital Sign Reading Time Taken Comments Blood Pressure 128/62 07/22/2021 9:18 AM EDT Sit ting L Arm Pulse 87 07/22/2021 9:18 AM EDT Temperature - - Respiratory Rate - - Oxygen Saturation - - Inhaled Oxygen Concentration - - Weight 61.7 kg (136 lb) 07/22/2021 9:18 AM EDT Height 149.9 cm (4' 11 ) 07/22/2021 9:18 AM EDT Body Mass Index 27.47 07/22/2021 9:18 AM EDT Plan of Treatment Health Maintenance Due Date Last Done Comments Hepatitis A Vaccines (1 of 2 - Risk 2-dose series) 1980 Pneumococcal Vaccine: 50+ Years (1 of 1 - PCV) 10/20/2011 Zoster Vaccines (1 of 2) 10/20/2011 Hepatitis B Vaccines (1 of 3 - Risk 3-dose series) 2021 RSV Immunization Adult Patients (1 - Risk 60-74 years 1-dose series) 2021 Colorectal Cancer Screening: Colonoscopy 03/15/2022 Osteoporosis Screening (Bone Density Screening) 03/15/2022 Social Influencers of Health Screening 03/15/2022 Hypertension/CHF/CAD Annual BMP Blood Test 03/19/2022 Breast Cancer Screening 02/02/2023 02/03/20 21, 02/20/2020, 01/09/2020 COVID-19 Vaccine ( season) 2023 Depression Screening 02/25/2025 02/26/2024 Cervical Cancer Screening: Pap Smear 11/03/2025 11/03/2022, 10/17/2020 Cholesterol Screening (Lipid Panel) 12/14/2028 12/15/2023 DTaP,Tdap,and Td Vaccines (2 - Td or Tdap) 11/28/2031 11/27/2021 HIV Screening Completed 10/15/2022 Hepatitis C Screening Completed 12/15/2023 Influenza Vaccine Completed 02/26/2024, , 02/13/2022, Additional history exists HIB Vaccines Aged Out No longer eligi ble based on patient's age to complete this topic HPV Vaccines Aged Out No longer eligi ble based on patient's age to complete this topic IPV Vaccines Aged Out No longer eligi ble based on patient's age to complete this topic MMR Vaccines Aged Out No longer eligi ble based on patient's age to complete this topic Meningococcal ACWY Vaccine Aged Out N o longer eligible based on patient's age to complete this topic Meningococcal B Vaccine Aged Out No l onger eligible based on patient's age to complete this topic Pneumococcal Vaccine: Pediatrics (0 to 5 Years) and At-Risk Patients (6 to 64 Years) Aged Out No longer eligible based on patient's age to complete this topic RSV Immunization Patients Under 20 months Aged Out No longer eligible based on patient's age to complete this topic Varicella Vaccines Aged Out No longer eligible based on patient's age to complete this topic Procedures Procedure Name Priority Date/Time Associated Diagnosis Comments COMPLETE BLOOD COUNT Routine 07/14/2024 1:41 PM EDT Calculus of kidney SCREENING MAMMOGRAPHY BI 2-VIEW BREAST INC CAD Routine 02/02/2021 10:56 AM EDT Unspecified lump in unspecified breast PAP SMEAR Routine 10/17/2020 from Last 3 Months or Most Recently Relevant to Health Maintenance Results * (ABNORMAL) Complete blood count (07/14/2024 1:41 PM EDT) WBC 2.8(L) 4.8 - 10.8 K/mcL LAB HEMETOLOGY METHOD 07/14/2024 7:45 PM EDT [facility] LAB RBC 4.40 3.80 - 4.80 M/mcL LAB HEMETOLOGY METHOD 07/14/2024 7:45 PM EDT [facility] LAB Hemoglobin 13.6 11.5 - 16.0 g/dL LAB HEMETOLOGY METHOD 07/14/2024 7:45 PM EDT [facility] LAB Hematocrit 40.3 35.0 - 47.0 % LAB HEMETOLOGY METHOD 07/14/2024 7:45 PM EDT [facility] LAB MCV 91.8 79.0 - 98.0 FL LAB HEMETOLOGY METHOD 07/14/2024 7:45 PM EDT [facility] LAB MCH 31.0 27.0 - 32.0 pcg LAB HEMETOLOGY METHOD 07/14/2024 7:45 PM EDT [facility] LAB MCHC 33.7 32.0 - 37.0 g/dL LAB HEMETOLOGY METHOD 07/14/2024 7:45 PM EDT [facility] LAB RDW 13.8 11.0 - 15.0 % LAB HEMETOLOGY METHOD 07/14/2024 7:45 PM EDT [facility] LAB Platelets 69(L) 130 - 400 K/mcL LAB HEMETOLOGY METHOD 07/14/2024 7:45 PM EDT [facility] LAB Comment:reviewed by slide MPV 11.4(H) 7.0 - 11.0 FL LAB HEMETOLOGY METHOD 07/14/2024 7:45 PM EDT [facility] LAB NRBC 0.0 <1.0 % LAB HEMETOLOGY METHOD 07/14/2024 7:45 PM EDT [facility] LAB NRBC Absolute 0.00 <0.10 K/mcL LAB HEMETOLOGY METHOD 07/14/2024 7:45 PM EDT [facility] LAB Blood Venous blood specimen / Unknown 07/14/2024 1:41 PM EDT 07/14/2024 6:17 PM EDT Everett GALARZA LAB BLOOD ORDERABLES Final Resul t [facility] LAB [address] [place] [address], * SCREENING MAMMOGRAPHY BI 2-VIEW BREAST INC CAD (02/02/2021 10:56 AM EDT) Anatomical Region Laterality Modality Radiographic Nataliia ging 01/09/2020 10:4 5 AM EDT Narrative 02/04/2021 4:41 PM EDT This is a summary report. The complete report is available in the patient's medical record. If you cannot access the medical record, please contact the sending organization for a detailed fax or copy. Exam: Screening mammogram Findings: Digital bilateral full-field screening mammography is performed with tomosynthesis and interpreted with the aid of computer-aided detection. ??Comparison is made with 02/20/2020 and 01/09/2020. ?? Breast parenchyma is composed of scattered fibroglandular densities. ??Decreasing focal asymmetry in the region of a biopsy marker in the lower inner right breast. No new suspicious mass, architectural distortion, or suspicious calcifications. Impression: No mammographic evidence of malignancy. BI-RADS 2-benign Procedure Note Odilia Daugherty MD - 03/25/2022 This is a summary report. The complete report is available in thepatient's medical record. If you cannot access the medical record, pleasecontact the sending organization for a detailed fax or copy. Exam: Screening mammogram Findings: Digital bilateral full-field screening mammography is performedwith tomosynthesis and interpreted with the aid of computer-aideddetection. Comparison is made with 02/20/2020 and 01/09/2020. Breast parenchyma is composed of scattered fibroglandular densities.Decreasing focal asymmetry in the region of a biopsy marker in the lowerinner right breast. No new suspicious mass, architectural distortion, orsuspicious calcifications. Impression: No mammographic evidence of malignancy. BI-RADS 2-benign us Lizzy Orellana MD IMG XR PROCEDURES Final Resu lt * Pap smear (10/17/2020) 10/17/2020 Narrative HISTORICAL TESTING LAB RESULTING AGENCY - 10/22/2020 10:50 AM EDT [id number] THINPREP PAP, IMAGED: NEGATIVE FOR SQUAMOUS INTRAEPITHELIAL LESION AND MALIGNANCY . ATROPHY. KIRAN CATHERINE , KENYA([facility]) (CASE ELECTRONICALLY SIGNED 10 22 2020) RESULT OF APTIMA HIGH RISK HPV ASSAY: HIGH RISK HPV: ??NEGATIVE (SEROTYPES 16,18,31,33,35,39,45,51,52,56,58,59,66,68) COMPLETED ON 2020-10-22 ADEQUACY: SATISFACTORY . SOURCE: THINPREP PAP HPV ANY DX: ??REFLEX 16 AND 18, CERVICAL, IMAGED CLINICAL INFORMATION: HPV ANY DIAGNOSIS. HORMONES, PAP HX NEG [Z12.4, Z01.419] Gonzalo Campbell DO LAB CYTOLOGY ORDERABLES Final Result HISTORICAL TESTING LAB RESULTING AGENCY from Last 3 Months or Most Recently Relevant to Health Maintenance Insurance MEDICAID - [place] Care Teams Senior Research Scientist Relationship Specialty Start Date End Date Lauren Haile RN [address] [place] [phone] PCP - General 01/22/22
--- OUTSIDE RECORDS SUMMARY | 2024-08-19 10:06 | XMS_ITS | Encounter Summary ---
Author Organization [employer] Address 75 [facility] 7t [place] [address] Care Team Providers Care Gasoline Truck Crane Operator Name Role Phone Kendal Crandall Primary Care Provider [phone] Seth Martinez Unavailable Katia Graff MD Unavailable [phone] Lainey Crenshaw MD Unavailable Ladarius Call MD Unavailable [phone] Kimmie Salazar OD Unavailable [phone] Reason for Visit * Reason Onset Date Comments Referral 03/06/2023 Encounter Details Date Type Department Care Team (Late st Contact Info) Description 03/06/2023 Telephone [facility] MEDICINE [address] [place] [address] Kendal Crandall FNP [address] [place], [place] [phone] Referral Social History Tobacco Use Types Packs/Day Years Used Date Smoking Tobacco: Never Passive Smoke Exposure: Never Smokeless Tobacco: Never Alcohol Use Standard Drinks/Week Comments Never 0 (1 standard drink = 0.6 oz pur e alcohol) Depression Answer Date Recorded Patient Health Questionnaire-9 Score 6 12/26/2022 Housing Stability Answer Date Recorded What is your housing situation today? I have luna miller 01/19/[address] you li ve. Do you have problems with any of the following? None of the above 01/19/2023 Food Insecurity Answer Date Recorded Within the past 12 months, y ou worried that your food would run out before you got money to buy more: Never True 01/19/2023 Within the past 12 months,th e food you bought just didn't last and you didn't have enough money to get more: Never True Transportation Answer Date Recorded In the past 12 months, has l ack of transportation kept you from medical appts, meetings, work or from getting things needed for daily living? No 01/19/2023 Utilities Answer Date Recorded In the past 12 months, has t he [employer], gas, oil or water company threatened to shut off services in your home? No 01/19/2023 Depression Answer Date Recorded Patient Health Questionnaire-2 Score 2 12/26/2022 Comments Unknown Sex and Gender Information Value Date Recorded Sex Assigned at Female 02/03/2022 10:39 AM EDT Legal Sex Female 10:39 AM EDT Gender Identity Female 02/03/2022 10:39 AM EDT Sexual Orientation Straight 02/03/2022 10 :39 AM EDT documented as of this encounter Miscellaneous Notes * Telephone Encounter - [place] - 03/09/2023 10:52 AM EST Insurance referral # faxed to U. * Telephone Encounter - Suellen Gordon - 03/06/2023 12:06 PM EST Tc from pt requesting to add visits to [facility] Urology Referral at [address] Pt was advise they going to charge her if she don't have the referral. documented in this encounter Plan of Treatment Upcoming Encounters Date Type Department Care Team (Late st Contact Info) Description 09/02/2024 10:30 AM EDT Office Visit [facility] OPTOMETRY [address] [place] [address] Dirk, Romelia, OD [address] [place] [address] 09/08/2024 9:30 AM EDT Clinical Support [facility] CHC MED & PEDS 505 [facility] [place] [address] Mary Geronimo, RN [address] [place] [address] 09/16/2024 11:15 AM EDT Office Visit [facility] MEDICINE [address] [place] [address] Dodie Nj MD [address] [place] [address] 11/11/2024 10:15 AM EDT Office Visit [facility] CHC MED & PEDS [address] [place] [address] Kendal Crandall FNP [address] [place] [address] documented as of this encounter Visit Diagnoses Not on filedocumented in this encounter Additional Health Concerns Assessment Noted Time PHQ-9 Depression Total Score: 6 12/27/19 23 2:43 PM EDT documented as of this encounter Care Teams Gasoline Truck Crane Operator Relationship Specialty Start Date End Date Kendal Crandall FNP [address] [place] [address] PCP - General Family Medicine 11/30/21 Seth Martinez [address] [place] [phone] Urology 02/26/24 Katia Graff MD [address] [place] [address] Hematology and Oncology 02/26/24 Lainey Crenshaw MD [address] [place] [address] Dr No[address] [place] [address] Neurology 02/28/24 Ladarius Call MD [address] [place] [address] Drive 3rd [place] [address] Cardiology 06/06/24 Kimmie Salazar OD [address] [place] [address] Optometry 06/06/24 documented as of this encounter
--- OUTSIDE RECORDS SUMMARY | 2024-08-19 10:06 | XMS_ITS | Encounter Summary ---
Author Organization [employer] Address 75 [facility] 7t [place] [address] Care Team Providers Care Certified Nurse Operating Room Name Role Phone Kendal Crandall Primary Care Provider Seth Martinez Unavailable Katia Graff MD Unavailable [phone] Lainey Crenshaw MD Unavailable Ladarius Call MD Unavailable Kimmie Salazar OD Unavailable [phone] Reason for Visit * Reason Onset Date Comments Med Refill 02/11/2024 Encounter Details Date Type Department Care Team (Late st Contact Info) Description 02/11/[address] [facility] MEDICINE [address] [place] [address] Kendal Crandall FNP [address] [place], [place] [phone] Med Refill Social History Tobacco Use Types [...] your housing situation today? I have luna sing 10/12/[address] you li [...] encounter Miscellaneous Notes * Telephone Encounter - Bjorn Crump - 02/11/2024 10:03 AM EST TC from pt requesting medication refill. Medications needing refill : traMADol (Ultram) 50 MG tablet To be sent to: [facility]/pharmacy #[id number] - [address] AT [facility] documented in this encounter Plan of Treatment Upcoming Encounters Date Type Department Care Team (Late st Contact Info) Description 09/02/2024 10:30 AM EDT Office Visit [facility] OPTOMETRY [address] [place], [place] [phone] Romelia Cavazos, OD [address] [place] [address] 09/08/2024 9:30 AM EDT Clinical Support [facility] CHC MED & PEDS [address] [place] [address] Mary Geronimo, RN [address] [place], [place] 09/16/2024 11:15 AM EDT Office Visit [facility] MEDICINE [address] [place] [address] Dodie Nj MD 230 [place] [address] 11/11/2024 10:15 AM EDT Office Visit [facility] MED & PEDS [address] [place] [address] Kendal Crandall FNP [address] [place] [address] documented as of this encounter Visit Diagnoses Not on filedocumented in this encounter Additional Health Concerns Assessment Noted Time PHQ-9 Depression Total Score: 6 12/27/19 23 2:43 PM EDT documented as of this encounter Care Teams Certified Nurse Operating Room Relationship Specialty Start Date End Date Kendal Crandall FNP [address] [place] [address] PCP - General Family Medicine 11/30/21 Seth Martinez [address] [place] [phone] Urology 02/26/24 Katia Graff MD [address] [place] [address] Hematology and Oncology 02/26/24 Lainey Crenshaw MD [address] [place] [address] Dr No[address] [place] [address] Neurology 02/28/24 Ladarius Call MD [address] [place] [address] 3rd [place] [address] Cardiology 06/06/24 Kimmie Salazar OD [address] [place] [address] Optometry 06/06/24 documented as of this encounter
--- OUTSIDE RECORDS SUMMARY | 2024-08-19 10:06 | XMS_ITS | Encounter Summary ---
Author Organization [employer] Address 75 [facility] 7t [place] [address] Care Team Providers Care Sign Language Instructor Name Role Phone Kendal Crandall Primary Care Provider [phone] Seth Martinez Unavailable Katia Graff MD Unavailable [phone] Lainey Crenshaw MD Unavailable [phone] Ladarius Call MD Unavailable [phone] Kimmie Salazar OD Unavailable [phone] Reason for Visit * Reason Onset Date Comments Med Refill 06/19/2023 Encounter Details Date Type Department Care Team (Late st Contact Info) Description 06/19/2023 Refill [facility] MED [facility] PEDS [address] [place] [address] Kendal Crandall FNP 505 [place], [place] [phone] Chronic low back pain, unspecified back pain laterality, unspecified whether sciatica present (Primary Dx) Social History Tobacco Use Types Packs/Day Years [...] encounter Miscellaneous Notes * Telephone Encounter - Leon Martinez - 06/19/2023 12:06 PM EDT TC from pt requesting medication refill. Medications needing refill : Tramadol To be sent to: [facility]/pharmacy #[id number] AT [facility] documented in this encounter Plan of Treatment Upcoming Encounters Date Type Department Care Team (Late st Contact Info) Description 09/02/2024 10:30 AM EDT Office Visit [facility] OPTOMETRY [address] [place] [address] Romelia Cavazos, OD [address] [place] [address] 09/08/2024 9:30 AM EDT Clinical Support [facility] MED [facility] PEDS [address] [place] [address] Mary Geronimo OWEN 505 [place] [address] 09/16/2024 11:15 AM EDT Office Visit [facility] MEDICINE 230 [place] [address] Dodie Nj MD 230 [place] [address] 11/11/2024 10:15 AM EDT Office Visit [facility] MED [facility] PEDS [address] [place] [address] Kendal Crandall FNP 505 [place] [address] documented as of this encounter Visit Diagnoses Diagnosis Chronic low back pain, unspecified back pain laterality, unspecified whether sciatica present- Primary documented in this encounter Additional Health Concerns Assessment Noted Time PHQ-9 Depression Total Score: 6 12/27/19 23 2:43 PM EDT documented as of this encounter Care Teams Sign Language Instructor Relationship Specialty Start Date End Date Kendal Crandall FNP [address] [place] [address] PCP - General Family Medicine 11/30/21 Seth Martinez [address] [place] [phone] Urology 02/26/24 Katia Graff MD [address] [place] [address] Hematology and Oncology 02/26/24 Lainey Crenshaw MD [address] [place] [address] Dr [address]ol [address] [place] [address] Neurology 02/28/24 Ladarius Call MD [address] [place] [address] 3rd [place] [address] Cardiology 06/06/24 Kimmie Salazar OD [address] [place] [address] Optometry 06/06/24 documented as of this encounter
--- OUTSIDE RECORDS SUMMARY | 2024-08-19 10:06 | XMS_ITS | Encounter Summary ---
Author Organization [employer] Address 75 [facility] 7t [place] [address] Care Team Providers Care Senior Oracle Pl Sql Developer Name Role Phone Kendal Crandall STEEL WHEEL ENGRAVER Primary Care Provider Seth Martinez Unavailable Katia Graff MD Unavailable [phone] Lainey Crenshaw MD Unavailable Ladarius Call MD Unavailable Kimmie Salazar OD Unavailable [phone] Encounter Details Date Type Department Care Team (Late st Contact Info) Description 01/20/2024 Orders Only [facility] CH[facility] MED & PEDS 505 [place] [address] Maame Day MD 505 [place] [address] Social History Tobacco Use Types Packs/Day Years [...] Description 09/02/2024 10:30 AM EDT Office Visit [facility] OPTOMETRY [address] [place] [address] Romelia Cavazos, SHANON 230 [place] [address] 09/08/2024 9:30 AM EDT Clinical Support [facility] MED & PEDS 505 [place] [address] Mary Geronimo, OWEN 505 [place] [address] 09/16/2024 11:15 AM EDT Office Visit [facility] MEDICINE 230 [place] [address] Dodie Nj MD 230 [place] [address] 11/11/2024 10:15 AM EDT Office Visit [facility] MED & PEDS 505 [place] [address] Kendal Crandall FNP 505 [place], [place] documented as of this encounter Visit Diagnoses Not on filedocumented in this encounter Additional Health Concerns Assessment Noted Time PHQ-9 Depression Total Score: 6 12/27/19 23 2:43 PM EDT documented as of this encounter Care Teams Senior Oracle Pl Sql Developer Relationship Specialty Start Date End Date Kendal Crandall FNP 230 [place] [address] PCP - General Family Medicine 11/30/21 Seth Martinez [address] [phone] Urology 02/26/24 Katia Graff MD [address] [place] [address] Hematology and Oncology 02/26/24 Lainey Crenshaw MD [address] [place] [address] Dr Noel [address] [place] [address] Neurology 02/28/24 Ladarius Call MD 11 [facility] 3rd [place] [address] Cardiology 06/06/24 Kimmie Salazar OD 267 [place] [address] Optometry 06/06/24 documented as of this encounter
--- OUTSIDE RECORDS SUMMARY | 2024-08-19 10:06 | XMS_ITS | Encounter Summary ---
Author Organization [employer] Address 75 [facility] 7t [place] [address] Care Team Providers Care Guest Service Aide Name Role Phone Kendal Crandall Primary Care Provider Seth Martinez Unavailable Katia Graff MD Unavailable [phone] Lainey Crenshaw MD Unavailable [phone] Ladarius Call MD Unavailable [phone] Kimmie Salazar OD Unavailable [phone] Reason for Visit * Reason Onset Date Comments Med Refill 03/16/2023 Encounter Details Date Type Department Care Team (Late st Contact Info) Description 03/16/2023 Telephone [facility] MEDICINE 230 [place] [address] Kendal Crandall FNP 505 [place], [place] [phone] Med Refill Social History Tobacco Use Types [...] the past 12 months, has t he [employer], gas, oil or water company threatened to [...] encounter Miscellaneous Notes * Telephone Encounter - Kim Lind LPN - 03/16/2023 3:08 PM EST Medication was sent to [facility] #[id number] on 02/06/23 #90. * Telephone Encounter - Kevin Her - 03/16/2023 2:36 PM EST Tc from patient requesting a medication refill for traZODone (Desyrel) 100 MG tablet. documented in this encounter Plan of Treatment Upcoming Encounters Date Type Department Care Team (Late st Contact Info) Description 09/02/2024 10:30 AM EDT Office Visit [facility] OPTOMETRY [address] [place], [place] [phone] Romelia Cavazos, OD [address] [place] [address] 09/08/2024 9:30 AM EDT Clinical Support [facility] CHC MED & PEDS 505 [place] [address] Mary Geronimo, RN 505 [place], [place] 09/16/2024 11:15 AM EDT Office Visit [facility] MEDICINE 230 [place] [address] Dodie Nj MD 230 [place] [address] 11/11/2024 10:15 AM EDT Office Visit [facility] MED & PEDS 505 [place], [place] [phone] Kendal Crandall FNP 505 [place], [place] documented as of this encounter Visit Diagnoses Not on filedocumented in this encounter Additional Health Concerns Assessment Noted Time PHQ-9 Depression Total Score: 6 12/27/19 23 2:43 PM EDT documented as of this encounter Care Teams Guest Service Aide Relationship Specialty Start Date End Date Kendal Crandall FNP [address] [place] [address] PCP - General Family Medicine 11/30/21 Seth Martinez [address] [place] [phone] Urology 02/26/24 Katia Graff MD [address] [place] [address] Hematology and Oncology 02/26/24 Lainey Crenshaw MD [address] [place] [address] [place] [address] Neurology 02/28/24 Ladarius Call MD [address] [place] [address] 3rd [place] [address] Cardiology 06/06/24 Kimmie Salazar OD [address] [place] [address] [place] [address] Optometry 06/06/24 documented as of this encounter
--- OUTSIDE RECORDS SUMMARY | 2024-08-19 10:06 | XMS_ITS | Encounter Summary ---
Author Organization [employer] Address [address] [place] [address] 7t [place] [address] Care Team Providers Care Steam Box Hand Name Role Phone Kendal Crandall JADE Primary Care Provider Seth Martinez Unavailable Katia Graff MD Unavailable [phone] Lainey Crenshaw MD Unavailable Ladarius Call MD Unavailable Kimmie Salazar OD Unavailable [phone] Encounter Details Date Type Department Care Team (Late st Contact Info) Description 03/14/2022 Orders Only [facility] 230 [place], [place] [phone] Kim Guevara, RN 230 [place] [address] Social History Tobacco Use Types Packs/Day Years Used Date Smoking Tobacco: Never Assessed Comments Unknown Sex and Gender Information Value Date Recorded Sex Assigned at Female 02/03/2022 10:39 AM EDT Legal Sex Female 10:39 AM EDT Gender Identity Female 02/03/2022 10:39 AM EDT Sexual Orientation Straight 02/03/2022 10 :39 AM EDT documented as of this encounter Miscellaneous Notes * Result Encounter Note - Ekta Rivera CNM - 03/14/2022 2:42 PM EST Please make sure [facility] is running sensitivity on urine. Thanks! * Result Encounter Note - Ekta Rivera CNM - 03/14/2022 2:42 PM EST Please let Santa know she does have a UTI. I will send in antibiotics for her. It looks like the bacteria is sensitive to Bactrim, so I would like to send that in. She should complete full course, seek care if symptoms persist or worsen. * Result Encounter Note - Ekta Rivera CNM - 03/14/2022 2:42 PM EST Please let Santa know pap negative, repeat 5y. If UTI symptoms persist after tx, f/u with PCP or urology. Thanks! documented in this encounter Plan of Treatment Upcoming Encounters Date Type Department Care Team (Late st Contact Info) Description 09/02/2024 10:30 AM EDT Office Visit [facility] OPTOMETRY [address] [place] [address] Romelia Cavazos, OD 230 [place] [address] 09/08/2024 9:30 AM EDT Clinical Support [facility] MED & PEDS 505 [place] [address] Mary Geronimo, OWEN 505 [place] [address] 09/16/2024 11:15 AM EDT Office Visit [facility] MEDICINE 230 [place] [address] Dodie Nj MD 230 [place] [address] 11/11/2024 10:15 AM EDT Office Visit [facility] MED & PEDS [address] [place] [address] Kendal Crandall, MEDICAL SCIENTIFIC LIAISON 505 [place] [address] documented as of this encounter Procedures Procedure Name Priority Date/Time Associated Diagnosis Comments HPV MRNA E6/E7 REFLEX TO HPV 16, 18/45 Routine 11/03/2022 11:46 AM EDT PAP SMEAR Routine 11/03/2022 11:46 AM EDT CULTURE, URINE, ROUTINE Routine 11/03/2022 12:00 AM EDT HEPATITIS C ANTIBODY REFLEX Routine 10/15/2022 10:55 AM EDT SYPHILIS SCREEN Routine 10/15/2022 10:55 AM EDT HIV 1 RNA, QUANTITATIVE REAL TIME PCR Routine 10/15/2022 10:55 AM EDT HEMOGLOBIN A1C Routine 10/15/2022 10:55 AM EDT LIPID PANEL, STANDARD Routine 10/15/2022 10:55 AM EDT documented in this encounter Results * Pap Smear (11/03/2022 11:46 AM EDT) 11/03/2022 11:4 6 AM EDT 11/04/2022 9:15 AM EDT [facility] - 11/12/2022 1:41 PM EDT ----- ------- Name: Santa Joshi ? Age/Sex: 62/F ? : 1960 Unit#: [id number] ?? Attend Dr: EKTA RIVERA CNM ?Re11/03/22 ?Status: DEP REF ? Location: HO.HHCLNP ? Disch: ? ----- ------- SPEC : [id number] ?RECD: 11/04/22 ? STATUS: ??SOUT ? REQ NUM: [id number] ? DAVY: 11/03/22 ? SUBM DR: EKTA RIVERA CNM ? ENTERED: ??11/05/22 ?SP TYPE: Pap Smr ?OTHR DR: ? ORDERED: ??Pap Smear ? Interpretation ?? Satisfactory for evaluation. ?? Atrophic. ?? Negative for intraepithelial lesion or malignancy. ?HPV mRNA E6/E7: ?NOT DETECTED ? This assay detects E6/E7 viral messenger RNA (mRNA) from 14 high-risk HPV types (16, 18, ?? 31, 33, 35, 39, 45, 51, 52, 56, 58, 59, 66, 68) ?? HPV testing performed by [employer], [place], [place]. ??See reference laboratory ?? pion of the EMR for entire report. ?Clinical Information LMP: Postmenopausal Previous PAP test: Unknown date/findings ? Material Received ?? ThinPrep-Cervical ----- ------- Signed (signature on file) KENYA Kumar (ASCP) 11/12/22 1341 ? ----- ------- ? END OF REPORT ? us Ekta Rivera [facility] CYTOLOGY ORDERABLES F inal Result [facility] [address] [place] [phone] * HPV mRNA E6/E7 w/Reflex to HPV Genotypes 16, 18/45 (11/03/2022 11:46 AM EDT) HPV nRNA E6/E7 Not Detected Not Detected [facility] Comment:Methodology: Transcr iption-Mediated AmplificationThis assay detects E6/E7 viral messenger RNA (mRNA) from 14high-risk HPV types (16,18,31,33,35,39,45,51,52,56,58,59,66,68).Cervical sources are required for HPV testing.If a vaginal source from a patient who has had atotal hysterectomy with removal of cervix wassubmitted, please contact the testing laboratoryfor alternative testing options.For additional information, please refer tohttp://education.Booker/faq/KSF730f6(This link if provided for information/educational purposes only.)THIS TEST WAS PERFORMED AT:[facility] [place] [phone] COOK MD HPV mRNA E6/E7 [facility] HPV 16 RNA [facility] HPV 18/45 RNA [facility] 11/03/2022 11:4 6 AM EDT 11/04/2022 9:15 AM EDT us Ekta Rivera [facility] CYTOLOGY ORDERABLES F inal Result [facility] [address] [place] [address] [phone] * Culture, Urine, Routine (11/03/2022 12:00 AM EDT) Urine specimen obtained by clean catch procedure / Unknown 11/03/2022 11/03/2022 Comment:UACC Narrative [facility] - 11/05/2022 7:54 AM EDT Proteus mirabilis Quant > 100,000 cfu/mL Proteus mirabilis: Ampicillin <=2(S) Proteus mirabilis: Ceftriaxone <=0.25(S) Proteus mirabilis: Gentamicin <=1(S) Proteus mirabilis: Levofloxacin <=0.12(S) Proteus mirabilis: Nitrofurantoin 128(R) Proteus mirabilis: Trimethoprim/Sulfamethoxazole <=20(S) Specimen Source: Urine clean catch Ekta Lesley [facility] MICROBIOLOGY - GENERA L ORDERABLES Final Result Performing Organization Address [facility]/ZIP Co de Phone Number [facility] [address] [place] [phone] * HIV-1 RNA, Quantitative, Real-Time PCR (10/15/2022 10:55 AM EDT) HIV RNA PCR Qn Copies NOT DETECTED NOT DETECTED copies/mL [facility] HIV RNA PCR Qn Log Copies NOT DETECTED NOT DETECTED [facility] Comment:Result Units: Log co pies/mLThis test was performed using Real-Time Polymerase ChainReaction.Reportable Range: 20 copies/mL to 10,000,000 copies/mL(1.30 log copies/mL to 7.00 log copies/mL).THIS TEST WAS PERFORMED AT:[facility] [place] [phone] COOK MD 10/15/2022 10:5 5 AM EDT 10/15/2022 1:14 PM EDT [facility] External Provider LAB BLO OD ORDERABLES Final Result Performing Organization Address [facility]/ZIP Co de Phone Number [facility] [address] [place] [phone] * Syphilis Screen (10/15/2022 10:55 AM EDT) Syphilis Screen Nonreactive Nonreactive [facility] 10/15/2022 10:5 5 AM EDT 10/15/2022 1:14 PM EDT [facility] External Provider LAB BLO OD ORDERABLES Final Result Performing Organization Address [facility]/ZIP Co de Phone Number [facility] [address] [place] [address] [phone] * Hepatitis C Antibody Reflex (10/15/2022 10:55 AM EDT) Hepatitis C Antibody Nonreactive Nonreactive [facility] Comment:Antibodies to HCV no t detected; does not exclude early acuteHCV infection. 10/15/2022 10:5 5 AM EDT 10/15/2022 1:14 PM EDT [facility] External Provider LAB BLO OD ORDERABLES Final Result Performing Organization Address [facility] Co de Phone Number [facility] [address] [place] [phone] * Lipid Panel, Standard (10/15/2022 10:55 AM EDT) Triglycerides 53 mg/dL [facility] Comment:Desirable Triglyceri de: less than 150 mg/dLBorderline High Triglyceride 150-199 mg/dLHigh Triglyceride: 200-499 mg/dLVery High Triglyceride: greater than or equal to 5OO mg/dL Cholesterol 135 mg/dL [facility] Comment:Desirable Cholestero l: less than 200 mg/dLBorderline High Cholesterol: 200-239 mg/dLHigh Cholesterol: greater than 239 mg/dL LDL Cholesterol Calculated 70 mg/dl [facility] Comment:Desirable LDL: less than 100 mg/dLNear Optimal/Above Optimal LDL: 110- 129 mg/dLBorderline High LDL: 130-159 mg/dLHigh LDL: 160-189 mg/dLVery High LDL: greater than or equal to 190 mg/dL HDL Cholesterol 55 mg/dL [facility] Comment:Desirable HDL: great er than 40 mg/dL Note: This HDL assay may give artificially low results in patients with liver disease. 10/15/2022 10:5 5 AM EDT 10/15/2022 1:14 PM EDT [facility] External Provider LAB BLO OD ORDERABLES Final Result Performing Organization Address [facility] Co de Phone Number [facility] [address] [place] [address] [phone] * Hemoglobin A1c (10/15/2022 10:55 AM EDT) Hemoglobin A1c 5.4 % [facility] Comment:Hemoglobin A1C Refer ence Range Adults: 4.8 - 6.0 % Non diabetic: < 6.0 % Goal: < 7.0 %Additional Action Suggested: > 8.0 %Note: Hemoglobin A1c results are invalid for patients with abnormal amounts of HbF. Blood transfusions may impact the HbA1c concentration in the patient sample. Estimated Average Glucose 108 mg/dL [facility] Comment:eAG = Estimated ave rage glucose which is %A1C expressed asaverage glucose, using the formula of the K6T-OnljkxcDcrftna Glucose study (ADAG), Diabetes Care, Vol.31,#8,Nov. 2007 10/15/2022 10:5 5 AM EDT 10/15/2022 1:14 PM EDT [facility] External Provider LAB BLO OD ORDERABLES Final Result Performing Organization Address [facility] Co de Phone Number [facility] [address] [place] [address] [phone] documented in this encounter Visit Diagnoses Not on filedocumented in this encounter Care Teams Steam Box Hand Relationship Specialty Start Date End Date Kendal Crandall FNP [address] [place] [address] PCP - General Family Medicine 11/30/21 Seth Martinez [address] [place] [phone] Urology 02/26/24 Katia Graff MD [address] [place] [phone] Hematology and Oncology 02/26/24 Lainey Crenshaw MD [address] [place] [address] [address] [place], [place] [phone] Neurology 02/28/24 Ladarius Call MD [address] [place] [address] Drive 3rd Floor [place], [place] [phone] Cardiology 06/06/24 Kimmie Salazar OD [address] [place] [address] Optometry 06/06/24 documented as of this encounter
--- OUTSIDE RECORDS SUMMARY | 2024-08-19 10:06 | XMS_ITS | Clinical Summary ---
Author Organization [facility] Address [address] [place] [address] Care Team Providers Care Mat Machine Tender Name Role Phone Lizzy Orellana MD Primary Care Provider [phone] Allergies Active Allergy Reactions Criticality Noted Date Comments Aspirin 01/30/2020 Penicillins 01/30/2020 Medications Medication Sig Dispensed Refills Start Date End Date Status losartan (COZAAR) 100 MG tablet Take 100 mg by mouth daily. 0 Active atorvastatin (LIPITOR) tablet 10 mg Take 10 mg by mouth every evening. 0 Active alendronate (FOSAMAX) tablet 70 mg Take 70 mg by mouth every 7 days. Take with water on empty stomach/Nothing by mouth and do not lie down for next 30 minutes 0 Active traZODone (DESYREL) 50 MG tablet Take 50 mg by mouth every night at bedtime. 0 Active Active Problems Problem Noted Date Diagnosed Date Thrombocytopenia 01/31/2020 Social History Tobacco Use Types Packs/Day Years Used Date Smoking Tobacco: Never Assessed Sex and Gender Information Value Date Recorded Sex Assigned at Not on file Gender Identity Not on file Sexual Orientation Not on file Job Start Date Occupation Industry Not on file Not on file Not on file Last Filed Vital Signs Vital Sign Reading Time Taken Comments Blood Pressure 146/54 02/22/2021 10:54 AM EST Pulse 71 02/22/2021 10:54 AM EST Temperature 37.1 ??C (98.7 ??F) 02/22/2021 10:[address] Respiratory Rate - - Oxygen Saturation 99% 02/22/2021 10:54 AM EST Inhaled Oxygen Concentration - - Weight 62.1 kg (137 lb) 02/22/2021 10:54 AM EST Height 149.9 cm (4' 11 ) 02/22/2021 10:54 AM EST Body Mass Index 27.67 02/22/2021 10:54 AM EST Plan of Treatment Health Maintenance Due Date Last Done Comments Hepatitis C Screening 1960 COVID-19 Vaccine (#1) 04/21/1962 Depression Screening 1973 Preventative Health Evaluation 10/20/1979 DTap / Tdap / Td (1 - Tdap) 1980 Cervical Cancer Screening (P ap Smear) 1982 Colon Cancer Screening (Colonoscopy) 2006 Breast Cancer Screening (Mammogram) 10/20/2011 Shingrix-Zoster Vaccine (1 of 2) 10/20/2011 Influenza Vaccine (#1) 2023 RSV Adult > 60+ Yrs or Pregn ant (1 - 1-dose 75+ series) 2036 Hepatitis B Vaccines Aged Out No long er eligible based on patient's age to complete this topic Pneumococcal Vaccine Aged Out No long er eligible based on patient's age to complete this topic RSV Ped < 20 months Aged Out No longe r eligible based on patient's age to complete this topic Care Teams Mat Machine Tender Relationship Specialty Start Date End Date Lizzy Orellana MD PCP - General Internal Medicine 12/27/19
--- OUTSIDE RECORDS SUMMARY | 2024-08-19 10:06 | XMS_ITS | Encounter Summary ---
Author Organization [employer] Address [address] [facility] 7t [place] [address] Care Team Providers Care Loss Prevention Lead Name Role Phone Kendal Crandall Primary Care Provider Seth Martinez Unavailable Katia Graff MD Unavailable [phone] Lainey Crenshaw MD Unavailable [phone] Ladarius Call MD Unavailable [phone] Kimmie Salazar OD Unavailable [phone] Reason for Visit * Reason Onset Date Comments Call Back Request 06/24/2023 Encounter Details Date Type Department Care Team (Late st Contact Info) Description 06/24/2023 Telephone [facility] MEDICINE [address] [place] [address] Kendal Crandall FNP [address] [place], [place] [phone] Call Back Request Social History Tobacco Use [...] the past 12 months, has t he [employer], gas, oil or water company threatened to [...] encounter Miscellaneous Notes * Telephone Encounter - Kevin Her - 06/24/2023 11:23 AM EDT Tc from patient calling in regards to Tele appt on 06/23 at 10:30 and has not received a call documented in this encounter Plan of Treatment Upcoming Encounters Date Type Department Care Team (Late st Contact Info) Description 09/02/2024 10:30 AM EDT Office Visit [facility] OPTOMETRY [address] [place] [address] Romelia Cavazos, OD [address] [place] [address] 09/08/2024 9:30 AM EDT Clinical Support [facility] MED & PEDS [address] [place] [address] Mary Geronimo, OWEN 505 [place] [address] 09/16/2024 11:15 AM EDT Office Visit [facility] [address] [place] [address] Dodie Nj MD [address] [place] [address] 11/11/2024 10:15 AM EDT Office Visit [facility] MED & PEDS [address] [place] [address] eKndal Crandall FNP [address] [place] [address] documented as of this encounter Visit Diagnoses Not on filedocumented in this encounter Additional Health Concerns Assessment Noted Time PHQ-9 Depression Total Score: 6 12/27/19 23 2:43 PM EDT documented as of this encounter Care Teams Loss Prevention Lead Relationship Specialty Start Date End Date Kendal Crandall FNP [address] [place] [address] PCP - General Family Medicine 11/30/21 Seth Martinez [address] [place] [phone] Urology 02/26/24 Katia Graff MD [address] [place] [address] Hematology and Oncology 02/26/24 Lainey Crenshaw MD [address] [place] [address] Dr Noel [address] [place] [address] Neurology 02/28/24 Ladarius Call MD [address] [place] [address] 3rd [place] [address] Cardiology 06/06/24 Kimmie Salazar OD [address] [place] [address] Optometry 06/06/24 documented as of this encounter
--- OUTSIDE RECORDS SUMMARY | 2024-08-19 10:06 | XMS_ITS | Encounter Summary ---
Author Organization [employer] Address [address] [facility] 7t [place] [address] Care Team Providers Care Coroner'S Juror Name Role Phone Kendal Crandall Primary Care Provider Seth Martinez Unavailable Katia Graff MD Unavailable [phone] Lainey Crenshaw MD Unavailable [phone] Ladarius Call MD Unavailable Kimmie Salazar OD Unavailable [phone] Reason for Visit * Reason Onset Date Comments Med Refill 06/09/2024 Encounter Details Date Type Department Care Team (Late st Contact Info) Description 06/09/2024 Telephone [facility] MEDICINE [address] [place] [address] Kendal Crandall FNP [address] [place], [place] [phone] Med Refill Social History Tobacco Use Types [...] * Telephone Encounter - Alison Angela - 06/09/2024 9:14 AM EST TC from pt requesting medication refill. Medications needing refill : traMADol (Ultram) 50 MG tablet To be sent to: [facility]/pharmacy #[id number] - [place], [place] - [address] [facility] documented in this encounter Plan of Treatment Upcoming Encounters Date Type Department Care Team ([facility] st Contact Info) Description 09/02/2024 10:30 AM EDT Office Visit [facility] OPT[facility] [address] [place] [address] Jefferson Cavazosn, OD [address] [place] [address] 09/08/2024 9:30 AM EDT Clinical Support [facility] MED & PEDS [address] [place] [address] Mary Geronimo RN [address] [place] [address] 09/16/2024 11:15 AM EDT Office Visit [facility] MEDICINE [address] [place] [address] Dodie Nj MD 230 [place] [address] 11/11/2024 10:15 AM EDT Office Visit [facility] MED & PEDS [address] [place] [address] Kendal Crandall FNP [address] [place] [address] documented as of this encounter Visit Diagnoses Not on filedocumented in this encounter Additional Health Concerns Assessment Noted Time PHQ-9 Depression Total Score: 7 02/26/20 24 9:58 AM EST documented as of this encounter Care Teams Coroner'S Juror Relationship Specialty Start Date End Date Kendal Crandall FNP [address] [place] [address] PCP - General Family Medicine 11/30/21 Seth Martinez [address] [phone] Urology 02/26/24 Katia Graff MD [address] [place] [address] Hematology and Oncology 02/26/24 Lainey Crenshaw MD [address] [place] [address] [place] [address] Neurology 02/28/24 Ladarius Call MD [address] [place] [address] 3rd [place] [address] Cardiology 06/06/24 Kimmie Salazar OD [address] [place] [address] Optometry 06/06/24 documented as of this encounter
--- OUTSIDE RECORDS SUMMARY | 2024-08-19 10:06 | XMS_ITS | Encounter Summary ---
Author Organization [employer] Address [address] [facility] 7t [place] [address] Care Team Providers Care Rehab Aide Name Role Phone Kendal Crandall Primary Care Provider [phone] Seth Martinez Unavailable Katia Graff MD Unavailable [phone] Lainey Crenshaw MD Unavailable Ladarius Call MD Unavailable [phone] Kimmie Salazar OD Unavailable [phone] Reason for Visit * Reason Onset Date Comments Medical Questions 09/17/2022 Encounter Details Date Type Department Care Team (Late st Contact Info) Description 09/17/2022 Telephone [facility] MEDICINE [address] [place] [address] Kendal Crandall FNP [address] [place], [place] [phone] Medical Questions Social History Tobacco Use Types Packs/Day Years [...] encounter Miscellaneous Notes * Telephone Encounter - Ella Abbasi RN - 09/24/2022 11:34 AM EDT TC X2 to Diana regarding message below. LVM to return call to nurses. * Telephone Encounter - Ny Fowler - 09/24/2022 10:20 AM EDT TC from [facility] direct support worker returning call. Please see message below. Please contact her at [phone] PCP ARLYN Crandall * Telephone Encounter - Ella Abbasi RN - 09/18/2022 4:54 PM EDT TC X1 to Diana regarding message below. LVM to return call to nurses. * Telephone Encounter - JADE Amrbiz - 09/18/2022 4:48 PM EDT I have no direct concerns that would warrant an investigation. Thank you. * Telephone Encounter - Ella Abbasi RN - 09/18/2022 1:55 PM EDT Please review and advise if there are any concerns from your end that warrants any reporting to Elder services. * Telephone Encounter - Leon Martinez - 09/17/2022 11:53 AM EDT Tc from Diana with [employer] services requesting a call from a nurse in regards to a few questions for an investigation. Questions: Does patient have Health Care Proxy? Has the Health Proxy been revoked? Any Medical Compliances? Does provider have any concerns of patient living conditions? Please contact Diana at [phone] Ext [phone] documented in this encounter Plan of Treatment Upcoming Encounters Date Type Department Care Team (Late st Contact Info) Description 09/02/2024 10:30 AM EDT Office Visit [facility] OPTOMETRY [address] [place] [address] Dirk, Romelia, OD [address] [place] [address] 09/08/2024 9:30 AM EDT Clinical Support [facility] MED & PEDS [address] [place] [address] Mary Geronimo, OWEN [address] [place] [address] 09/16/2024 11:15 AM EDT Office Visit [facility] MEDICINE [address] [place] [address] Dodie Nj MD [address] [place] [address] 11/11/2024 10:15 AM EDT Office Visit [facility] MED & PEDS [address] [place] [address] Kendal Crandall FNP [address] [place] [address] documented as of this encounter Visit Diagnoses Not on filedocumented in this encounter Additional Health Concerns Assessment Noted Time PHQ-9 Depression Total Score: 10 023 11:36 AM EST documented as of this encounter Care Teams Rehab Aide Relationship Specialty Start Date End Date Kendal Crandall FNP [address] [place] [address] PCP - General Family Medicine 11/30/21 Seth Martinez [address] [facility] [address] [place] [address] Urology 02/26/24 Katia Graff MD [address] [place] [address] Hematology and Oncology 02/26/24 Lainey Crenshaw MD [address] [place] [address] [place] [address] Neurology 02/28/24 Ladarius Call MD [address] [place] [address] Drive 3rd [place] [address] Cardiology 06/06/24 Kimmie Salazar OD [address] [place] [address] Optometry 06/06/24 documented as of this encounter
--- OUTSIDE RECORDS SUMMARY | 2024-08-19 10:06 | XMS_ITS | Encounter Summary ---
Author Organization [employer] Address [address] [facility] 7t [place] [address] Care Team Providers Care Plumbing Assembler Name Role Phone Kendal Crandall Primary Care Provider Seth Martinez Unavailable Katia Graff MD Unavailable [phone] Lainey Crenshaw MD Unavailable Ladarius Call MD Unavailable Kimmie Salazar OD Unavailable [phone] Encounter Details Date Type Department Care Team (Late st Contact Info) Description 03/24/2022 Abstract [facility] MEDICINE [address] [place] [address] Kendal Crandall FNP [address] [place], [place] [phone] Social History Tobacco Use Types Packs/Day Years [...] Encounters Date Type Department Care Team (Late Contact Info) Description 09/02/2024 10:30 AM EDT Office Visit [facility] OPTOMETRY [address] [place] [address] Romelia Cavazos, OD [address] [place] [address] 09/08/2024 9:30 AM EDT Clinical Support [facility] MED & PEDS [address] [place] [address] Mary Geronimo, RN [address] [place], [place] 09/16/2024 11:15 AM EDT Office Visit [facility] MEDICINE [address] [place] [address] Dodie Nj MD [address] [place] [address] 11/11/2024 10:15 AM EDT Office Visit [facility] MED & PEDS [address] [place] [address] Kendal Crandall FNP [address] [place] [address] documented as of this encounter Visit Diagnoses Not on filedocumented in this encounter Care Teams Plumbing Assembler Relationship Specialty Start Date End Date Kendal Crandall FNP [address] [place] [address] PCP - General Family Medicine 11/30/21 Seth Martinez [address] [place] [phone] Urology 02/26/24 Katia Graff MD [address] [place] [address] Hematology and Oncology 02/26/24 Lainey Crenshaw MD [address] [place] [address] [place] [address] Neurology 02/28/24 Ladarius Call MD [address] [place] [address] Drive 3rd [place] [address] Cardiology 06/06/24 Kimmie Salazar OD [address] [place] [address] Optometry 06/06/24 documented as of this encounter
--- OUTSIDE RECORDS SUMMARY | 2024-08-19 10:06 | XMS_ITS | Clinical Summary ---
Author Organization [employer] Address [address] [facility] [address] [place] [address] Care Team Providers Care Pastry Baker Name Role Phone Kendal Crandall JADE Primary Care Provider [phone] Seth Martinez Unavailable Katia Graff MD Unavailable [phone] Lainey Crenshaw MD Unavailable Ladarius Call MD Unavailable Kimmie Salazar OD Unavailable [phone] Allergies Active Allergy Reactions Criticality Noted Date Comments Aspirin 01/30/2020 eye swelling Penicillins 01/30/2020 Trimethobenzamide Unknown 04/09/2022 Medications naloxone (Narcan) 4 mg/0.1 mL nasal spray Administer 0.1 mL into affected nostril(s) if needed for opioid reversal. May repeat dose every 2-3 minutes as needed alternating nostrils with each dose 022 Active desonide (DesOwen) 0.05 % creamIndications:S eborrheic dermatitis Apply topically if needed in the morning and at bedtime for irritation (itching). 15 g 2 023 Active lidocaine (Lidoderm) 5 % patch Apply 1 patch topically if needed each day for moderate pain. May wear up to 12 hours 30 patch 11 023 Active alendronate (Fosamax) 70 MG tabletIndications: Osteoporosis without current pathological fracture, unspecified osteoporosis type Take 1 tablet (70 mg) by mouth 1 (one) time per week. Take in the morning with a full glass of water, on an empty stomach, and do not take anything else by mouth or lie down for the next 30 min. 4 tablet 11 024 2024 Active amLODIPine (Norvasc) 10 MG tablet Take 1 tablet (10 mg) by mouth Once per day. 90 tablet 3 Active atorvastatin (Lipitor) 10 MG tablet Take 1 tablet (10 mg) by mouth at bedtime. 90 tablet 3 Active sulindac (Clinoril) 150 MG tabletIndications: Pain,Fibromyalgia TAKE 1 TABLET BY MOUTH EVERY MORNING IF NEEDED & 1 TABLET AT BEDTIME NEEDED FOR MODERATE PAIN 60 tablet 5 024 Active Fluocinolone Acetonide Scalp (Rivereno-Smoothe/FS Scalp) 0.01 % oilIndications:Pedro orrheic dermatitis Apply on damp scalp at night 118.28 mL 1 Active triamcinolone (Kenalog) 0.1 % creamIndications:P ruritus Apply topically if needed in the morning and at bedtime (pain and swelling). Mix with cerave 80 g 2 Active estradiol (Estrace) 0.1 MG/GM vaginal cream One gram vaginally at night x 14 days, then one gram vaginally at night twice a week ongoing 42.5 g Active lidocaine (Lidoderm) 5 % patch Apply 1 patch topically Once per day. Remove & discard patch within 12 hours or as directed by MD. 30 patch Active losartan (Cozaar) 100 MG tabletIndications: Essential hypertension Take 1 tablet (100 mg) by mouth Once per day. 90 tablet 3 Active methocarbamol (Robaxin) 750 MG tabletIndications: Pain,Fibromyalgia Take 1 tablet (750 mg) by mouth if needed each day for muscle spasms. 60 tablet 3 Active polyethylene glycol, PEG, 3350 (MiraLax) 17 GM/SCOOP powderIndications: Constipation, unspecified constipation type Take 17 g (~1 heaping tablespoon) dissolved in 120 to 240 mL (4 to 8 ounces) of beverage by mouth, once daily 238 g 2 024 Active clotrimazole-betam ethasone (Lotrisone) cream Apply topically if needed in the morning and at bedtime as needed for skin irritation 15 g 2 025 Active DULoxetine (Cymbalta) [address] capsuleIndications :Fibromyalgia Take 1 capsule (60 mg) by mouth Once per day. Do not crush or chew. 90 capsule 1 025 2025 Active traZODone (Desyrel) 100 MG tabletIndications: Insomnia, unspecified type TAKE 1 TABLET BY MOUTH AT BEDTIME IF NEEDED FOR SLEEP 90 tablet 3 025 Active ketoconazole (NIZOral) 2 % shampooIndications :Seborrheic dermatitis APPLY TOPICALLY 2 TO 3 TIMES A WEEK TO THE AFFECTED AREA(S), LATHER, LEAVE IN PLACE FOR 5 MINUTES AND THEN RINSE OFF WITH WATER 120 mL 1 Active Omeprazole 20 MG tablet delayed-release Take 1 tablet (20 mg) by mouth Once per day. 90 tablet 3 025 2025 Active omeprazole (PriLOSEC) [address] capsule Take 1 capsule (20 mg) by mouth before breakfast. Do not crush or chew. 90 capsule 1 025 2025 Active Diclofenac Sodium 1 % gelIndications:Rig ht anterior shoulder pain Apply thin layer by topical route (quantity as directed on package insert) to affected area of pain 3 times daily as needed. 50 g 3 025 Active traMADol (Ultram) 50 MG tabletIndications: Chronic low back pain, unspecified back pain laterality, unspecified whether sciatica present,Long-term current use of opiate analgesic,Fibromya lgia,Recurrent nephrolithiasis Take 1.5 tablets (75 mg) by mouth every 12 (twelve) hours if needed for severe pain. Do not start before August 10, 2024. 90 tablet 025 2024 Active polyvinyl alcohol (Liquifilm Tears) 1.4 % ophthalmic solutionIndication s:Dry eyes INSTILL 1 DROP INTO BOTH EYES IF NEEDED IN MORNING, AT NOON, IN EVENING, & AT BEDTIME FOR DRY EYES. 15 mL 3 025 Active traMADol (Ultram) 50 MG tabletIndications: Chronic low back pain, unspecified back pain laterality, unspecified whether sciatica present,Long-term current use of opiate analgesic,Fibromya lgia,Recurrent nephrolithiasis Take 1.5 tablets (75 mg) by mouth every 12 (twelve) hours if needed for severe pain. Do not start before July 11, 2024. 90 tablet 025 2024 Discontinued(R eorder (will not trigger notification to Pharmacy)) polyvinyl alcohol (Liquifilm Tears) 1.4 % ophthalmic solutionIndication s:Dry eyes Administer 1 drop into both eyes if needed in the morning, at noon, in the evening, and at bedtime for dry eyes. 15 mL 3 08/05/ 025 2024 Discontinued polyvinyl alcohol (Liquifilm Tears) 1.4 % ophthalmic solutionIndication s:Dry eyes ADMINISTER 1 DROP INTO BOTH EYES IF NEEDED IN THE MORNING, AT NOON, IN THE EVENING, AND AT BEDTIME FOR DRY EYES. 15 mL 3 025 2024 Discontinued Active Problems Problem Noted Date Diagnosed Date Long-term current use of opiate analgesic 2023 Overview (12/15/2023): Medication: Tramadol 75mg BID PRN Indication: fibromyalgia, OA, chronic low back pain, hx of recurrent nephrolithiasis Last EMERGENCY DEPT TECH Agreement: 02/18/23 Tier II (Q3 month visits w/ UTOX at least Q6 months) Assessment & Plan (01/13/2024 3:17 PM EDT): Timeline: - 01/04/24: EMERGENCY DEPT TECH Tele count WNL Facial spasm 10/27/2023 [place] (10/27/2023[place] [facility] [place]. [place]renshaw[place] 05/27/23 for right facial spasm most likely associated with anxiety. Plan to follow up PRN. May consider Botox injection. Class 1 obesity 10/09/2023 Routine health maintenance 05/04/2022 Overview (06/06/2024): Pap: [facility] 11/03/22. NILM HPV neg. Due October 2027 Mammo: BIRADS 2 on 05/13/24 Colonoscopy- remote hx normal, cologaurd given by previous PCP. Colonoscopy referral placed 02/26/24 DEXA - Osteopenia Jan 2024 (pt cannot be on calcium supplementation d/t hx of nephrolithiasis, cont Vit D and alendronate). Encouraged weight-bearing exercises. Last PE - 10/19/23 Assessment & Plan (09/26/2022 7:27 PM EDT): Labs faxed to [facility] Assessment & Plan (05/04/2022 1:03 PM EST): Will plan to call to schedule next follow up/PE when things settle with specialists. Follow up sooner as needed. Chronic low back pain 03/24/2022 Fibromyalgia 03/24/2022 Assessment & Plan (02/28/2024 3:08 PM EST): -Continue duloxetine 60mg nightly -Well controlled Assessment & Plan (10/27/2023 7:43 PM EDT): -Continue duloxetine 60mg nightly -Well controlled Assessment & Plan (05/31/2023 12:37 PM EST): -Restart on duloxetine 30mg nightly -May increase to duloxetine 60mg nightly in 2 weeks (previous therapeutic dose). Reviewed med safety and SE -Call office if in need of med refill before next appt Essential hypertension 03/24/2022 Overview (04/26/2023): -BP well controlled with current regimen ?? Continue amlodipine 10mg daily ?? Continue losartan 100mg daily -Continue with low salt diet and daily exercise History of myocardial infarction 03/24/2022 History of parathyroidectomy 03/24/2022 Hyperlipidemia 03/24/2022 Overview (10/27/2023): -Continue atorvastatin 10mg nightly and lifestyle modification Lab Results Component Value Date CHOL 135 10/15/2022 TRIG 53 10/15/2022 HDL 55 10/15/2022 LDLCHOLCAL 70 10/15/2022 Assessment & Plan (10/27/2023 7:53 PM EDT): Repeat lipid panel ordered Recurrent nephrolithiasis 03/24/2022 Overview (05/04/2022): -Pt reports extensive history of kidney stones since she was in her twenties -Reports that her case has been an outlier for nephrologists given that she has two types of stones: calcium and cystine -[facility] -Passed >100 stones in lifetime -Encouraged to continue with good hydration Assessment & Plan (02/26/2024 10:56 AM EST): Pain control: metocarbamol PRN, sulindac PRN (ideally to use APAP over NSAID). Cont Tramadol 75mg BID. Reviewed med safety and SE. Following with EMERGENCY DEPT TECH Program. Assessment & Plan (10/27/2023 7:48 PM EDT): Pain control: metocarbamol PRN, sulindac PRN (ideally to use APAP over NSAID). Appears to be developing tolerance to tramadol, discouraged increasing dose without first consulting prescriber. Cont Tramadol 75mg BID. Reviewed med safety and SE. Following with EMERGENCY DEPT TECH Program. Assessment & Plan (05/31/2023 12:37 PM EST): Pain control: metocarbamol PRN, sulindac PRN (ideally to use APAP over NSAID). Appears to be developing tolerance to tramadol, discouraged increasing dose without first consulting prescriber. Cont Tramadol 75mg BID. Reviewed med safety and SE. Assessment & Plan (04/26/2023 4:41 PM EST): Pain control: metocarbamol PRN, sulindac PRN (ideally to use APAP over NSAID). Appears to be developing tolerance to tramadol, discouraged increasing dose without first consulting prescriber. Shared decision making to increase to Tramadol 75mg BID x 1 -2 months. Reviewed med safety and SE. Assessment & Plan (01/22/2023 8:19 PM EDT): Pain control: continues with tramadol 50mg Q12H, metocarbamol PRN, sulindac PRN (ideally to use APAP over NSAID) Pt interested in OTC THC/CBD drops. Reviewed safety and potential interactions if taken at same time as other medications. Pt plan to separate from other medications and use with caution. Assessment & Plan (09/26/2022 7:29 PM EDT): Pain control: continues with tramadol 50mg Q12H, metocarbamol PRN Pt interested in OTC THC/CBD drops. Reviewed safety and potential interactions if taken at same time as other medications. Pt plan to separate from other medications and use with caution. Assessment & Plan (05/04/2022 12:57 PM EST): Upcoming procedure with [facility], referral updated to continue with specialist care Leukopenia 03/24/2022 Overview (06/06/2024): [place] [facility] [place] w/ Dr. Graff Osteopenia after menopause 03/24/2022 Assessment & Plan (10/27/2023 7:50 PM EDT): -Last DEXA scan Dec 2021 demonstrated osteopenia based on the lowest T-score value of -1.5 in the femoral neck -Repeat DEXA ordered Apr 2023, to be scheduled in Dec 2023 -Pt unable to use calcium supplements w/ hx of recurrent nephrolithiasis. Previously on alendronate in [place], interested in re-starting. Risks vs benefits reviewed, OK to restart. -Alendronate 70mg weekly initiated 10/19/23 Assessment & Plan (04/26/2023 4:31 PM EST): -Last DEXA scan Dec 2021 -Repeat DEXA ordered Apr 2023 Primary osteoarthritis involving multiple joints 03/24/2022 Rosacea 03/24/2022 Assessment & Plan (09/26/2022 7:22 PM EDT): ?? No current flare ?? Requesting referral to return to [facility] Derm team, referral placed Steatosis of liver 03/24/2022 Overview (06/06/2024): Lab Results Component Value Date AST 35 (H) 12/15/2023 ALT 30 12/15/2023 TOTPROTEIN 8.2 (H) 12/15/2023 ALB 4.2 12/15/2023 ALP 106 12/15/2023 TOTALBILIRUB 1.0 12/15/2023 Assessment & Plan (06/06/2024 2:05 PM EST): - CT Abd/pelvic from September 2023 demonstrating liver cirrhosis and splenomegaly - FIB-4 score: 5.02 on 12/15/23 - Abd US w/ elastography completed 02/05/24 suggestive of compensated advanced chronic liver disease. Shear wave elastography 2.1 m/s. - Reviewed US results with pt today, education provided re: lifestyle interventions. - [place] up [place] [facility] [place] as scheduled August 2024 Assessment & Plan (10/27/2023 7:45 PM EDT): -CT Abd/pelvic from September 2023 demonstrating liver cirrhosis and splenomegaly -Pt reports that she is aware of liver results and following with ?blood specialist. Reviewed results and lifestyle recommendations. Consider further eval through PCP office Trigger finger 03/24/2022 Positive antinuclear antibody 11/14/2021 Thrombocytopenia 01/31/2020 Overview (06/06/2024): -History of thrombocytopenia previously followed by [facility] -Specialist note 02/22/21: Broad lab eval including repeat CBC, ESR, LDH, B12 & folate levels, myeloma screening, Hep B, HIV, CMV, EBV, autoimmune screening, and anticardiolipin antibodies had been ordered. Unremarkable apart from high ISRAEL titer, which was subsequently evaluated by rheum 04/2020 who assessed no rhuem disease. Considered chronic ITP -Labs Feb 2022 showed platelets (116 thousand/uL), WBC (2.6 thousand/uL), and elevated total protein (8.5g/dL) -11/14/22[place] [facility] [place]. Graff. Follow up for chronic leukopenia and thrombocytopenia diagnosed around 2014. Heme workup in 2019 which showed splenomegaly and fatty liver. ISRAEL positive but rheum workup negative. [place] to have autoimmune cytopenias or related to splenic sequestration. Serum immunofixation negative for m pro. Assessment & Plan (10/27/2023 7:51 PM EDT): -Continue following [place] [facility] [place] Assessment & Plan (05/04/2022 1:11 PM EST): -[place] [facility] [place] to establish care (more convenient location for pt) -Asymptomatic, ED precautions Resolved Problems Problem Noted Date Diagnosed Date Resolved Date Myocardial infarction 06/20/20212022 Encounters Date Type Department Care Team Description 08/14/2024 Refill [facility] [address] [place] [address] Kendal Crandall FNP Dry eyes 08/09/2024 Refill [facility] [address] [place] [address] Kendal Crandall FNP Dry eyes 08/08/2024 Refill [facility] [address] [place] [address] Mary Geronimo, rover tender low back pain, unspecified back pain laterality, unspecified whether sciatica present; Long-term current use of opiate analgesic; Fibromyalgia; Recurrent nephrolithiasis 08/08/2024 Telephone [facility] [address] [place] [id number] Kendal Crandall FNP Med Refill 08/05/2024 10:00 AM EDT Office Visit [facility] [address] [place] [address] Kendal Crandall FNP Right anterior shoulder pain (Primary Dx); Dry eyes; Recurrent nephrolithiasis 08/05/2024 Travel 07/29/2024 Orders Only [facility] [address] [place] [address] ProviderYvette MD 07/19/2024 Telephone [facility] [address] [place] [address] Kendal Crandall FNP Chart Prep 07/15/2024 Telephone [facility] [address] [place] [address] Kendal Crandall FNP critical lab 07/12/2024 Telephone [facility] [address] [place] [address] Kendal Crandall FNP Referral 07/08/2024 Refill [facility] [address] [place] [address] Kendal Crandall FNP Chronic low back pain, unspecified back pain laterality, unspecified whether sciatica present; Long-term current use of opiate analgesic; Fibromyalgia; Recurrent nephrolithiasis 06/30/2024 Telephone [facility] [address] [place] [address] Damaris Matamoros MD Results 06/30/2024 Telephone [facility] [address] [place] [address] Damaris Matamoros MD Results 06/24/2024 10:00 AM EDT Office Visit [facility] [address] [place] [address] Damaris Matamoros MD Gastroesophageal reflux disease without esophagitis (Primary Dx) 06/24/2024 Refill [facility] [address] [place] [address] Damaris Matamoros MD 06/24/2024 Travel 06/22/2024 Telephone [facility] [address] [place] [address] Kendal Crandall FNP Nurse Triage 06/17/2024 Population Health Risk Score [facility] ([facility]) Department [address] [place] [phone] Provider, Population Health Generic 06/15/2024 9:30 AM EDT Clinical Support [facility] [address] [place] [address] Mary Geronimo RN Chronic low back pain, unspecified back pain laterality, unspecified whether sciatica present; intermediate (current) use of opiate analgesic 06/15/2024 Travel 06/09/2024 Refill [facility] [address] [place] [address] Mary Geronimo RN Chronic low back pain, unspecified back pain laterality, unspecified whether sciatica present; Long-term current use of opiate analgesic; Fibromyalgia; Recurrent nephrolithiasis 06/09/2024 Telephone [facility] [address] [place] [address] Kendal Crandall FNP Med Refill 06/08/2024 Telephone [facility] [address] [place] [address] Libby Baltazar MA June06/06/2024 10:00 AM EST Office Visit [facility] [address] [place] [address] Kendal Crandall FNP Steatosis of liver (Primary Dx); Routine health maintenance; Fibromyalgia; Insomnia, unspecified type; Seborrheic dermatitis; Other decreased white blood cell (WBC) count; Thrombocytopenia (CMS/HCC) 06/06/2024 Travel 06/03/2024 Telephone [facility] [address] [place] [address] Libby Baltazar MA Chart Prep from Last 3 Months Immunizations Immunization Administration Dates Next Due Influenza Injectable Quadriv alant Preservative Free IIV4 MDCK 01/09/2020 Influenza injectable quadriv alent preservative free 01/26/2023,02/13/2022,01/02/2021 Influenza, seasonal, injecta ble, preservative free 02/26/2024 Tdap 11/27/2021 Family History Medical History Relation Name Comments Colon cancer Cousin Leukemia Daughter Relation Name Status Comments Cousin Alive Daughter Social History Tobacco Use Types Packs/Day Years Used Date Smoking Tobacco: Never Passive Smoke Exposure: Never Smokeless Tobacco: Never Tobacco Cessation:Counseling Given: Not Answered Alcohol Use Standard Drinks/Week Comments Never 0 [...] Orientation Straight 02/03/2022 10 :39 AM EDT Last Filed Vital Signs Vital Sign Reading Time Taken Comments Blood Pressure 130/63 08/05/2024 9:54 AM EDT Pulse 88 08/05/2024 9:54 AM EDT Temperature 36.6 ??C (97.9 ??F) 08/05/2024 9:54 AM ED T Respiratory Rate 20 08/05/2024 9:54 AM EDT Oxygen Saturation 98% 08/05/2024 9:54 AM EDT Inhaled Oxygen Concentration - - Weight 63.7 kg (140 lb 8 oz) 08/05/2024 9:54 AM EDT Height 147.3 cm (4' 10 ) 08/05/2024 9:54 AM EDT Body Mass Index 29.36 08/05/2024 9:54 AM EDT Plan of Treatment Upcoming Encounters Date Type Department Care Team (Late st Contact Info) Description 09/02/2024 10:30 AM EDT Office Visit [facility] [address] [place] [address] Romelia Cavazos, OD [address] [place] [address] 09/08/2024 9:30 AM EDT Clinical Support [facility] [address] [place] [address] Mary Geronimo, OWEN [address] [place] [address] 09/16/2024 11:15 AM EDT Office Visit [facility] [address] [place] [address] Dodie Nj MD [address] [place] [address] 11/11/2024 10:15 AM EDT Office Visit [facility] [address] [place] [address] Kendal Crandall FNP [address] [place] [address] Health Maintenance Due Date Last Done Comments CT Colonography 1960 Colonoscopy 1960 Colorectal Cancer Screening 1960 FIT DNA/Cologuard 1960 FIT 1960 FOBT 1960 Sigmoidoscopy 1960 Hepatitis A Vaccines (1 of 2 - Risk 2-dose series) 1980 Pneumococcal Vaccine: 50+ Years (1 of 1 - PCV) 10/20/2011 Zoster Vaccines (1 of 2) 10/20/2011 Hepatitis B Vaccines (1 of 3 - Risk 3-dose series) 2021 RSV Patients and Patients Aged 60 years or older (1 - Risk 60-74 years 1-dose series) 2021 SDOH Screening 10/18/2024 2023 Depression Screening 02/25/2025 02/26/2024, 02/26/20 COVID-19 Vaccine ( season) 2025 10/02/2020, 09/04/2020 Postponed from 12/06/2023 (Patient Refused) Mammogram 05/13/2025 05/13/2024, 04/07, 12/26/2021 Alcohol/Substance Use Screening 06/06/2025 06/06/2024 Tobacco Screening 08/05/2025 08/05/2024 Pap Smear 11/03/2025 11/03/2022 Cervical Cancer Screening 11/04/2027 HPV/Cotest 11/04/2027 11/03/2022 Lipid Panel 12/14/2028 12/15/2023, 10/04, 05/14/2021 DTaP/Tdap/Td Vaccines (2 - Td or Tdap) 11/28/2031 11/27/2021 HIV Screening Completed 10/15/2022, 05/14/2021 Hepatitis C Screening Completed 12/15/2023 , 10/15/2022, 05/14/2021 Influenza Vaccine Completed 02/26/2024, , 02/13/2022, Additional [...] patient's age to complete this topic Meningococcal Vaccine Aged Out No rachel marvin eligible based on patient's age to complete this topic RSV under 20 months Aged Out No longe r eligible based on patient's age to complete this topic Rotavirus Vaccines Aged Out No longer eligible based on patient's age to complete this topic Procedures Procedure Name Priority Date/Time Associated Diagnosis Comments CT ABDOMEN PELVIS WO CONTRAST Routine 07/27/2024 12:16 PM EDT HELICOBACTER PYLORI AG, EIA, STOOL Routine 06/27/2024 12:12 PM EDT Gastroesophageal reflux disease without esophagitis POCT RICH-14 URINE DRUG SCREEN Routine 06/15/2024 9:35 AM EDT Chronic low back pain, unspecified back pain laterality, unspecified whether sciatica present 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 BI MAMMOGRAM SCREENING TOMOSYNTHESIS BILATERAL Routine 05/13/2024 11:30 AM EST HEPATITIS C AB W/REFL TO HCV RNA, QN, PCR Routine 12/15/2023 9:22 AM EDT Routine health maintenance LIPID PANEL, STANDARD Routine 12/15/2023 9:22 AM EDT Routine health maintenance HPV MRNA E6/E7 REFLEX TO HPV 16, 18/45 Routine 11/03/2022 11:46 AM EDT PAP SMEAR Routine 11/03/2022 11:46 AM EDT HIV 1 RNA, QUANTITATIVE REAL TIME PCR Routine 10/15/2022 10:55 AM EDT from Last 3 Months or Most Recently Relevant to Health Maintenance Results * CT Abdomen Pelvis w/o Contrast (07/27/2024 12:16 PM EDT) Anatomical Region Laterality Modality Body, Pelvis, Abdomen Computed T omography Historical Provider MD MELGAR CT PROCEDURES Final R esult * Helicobacter pylori??Antigen, EIA, Stool (06/27/2024 12:12 PM EDT) H pylori Ag Stool SEE NOTE [facility] Comment:HELICOBACTER PYLORI AG, EIA, STOOL Micro Number: [id number] Test Status: Final Specimen Source: Stool Specimen Quality: Adequate H.pylori Ag: Not Detected Antimicrobials, proton pump inhibitors, and bismuth preparations inhibit H. pylori and ingestion up to two weeks prior to testing may cause false negative results. If clinically indicated the test should be repeated on a new specimen obtained two weeks after discontinuing treatment. Reference Range: Not DetectedTHIS TEST WAS PERFORMED AT:[email or web address] [place] [id number] COOK MD Stool Rectal contents / Unknown 06/27/2024 12:12 PM EDT 06/27/2024 2:13 PM EDT us Damaris Matamoros MD LAB BODY FLUIDS AND STOOLS ORDER ALMITA Final Result [facility] [address] [place] [address] [phone] * POCT RICH-14 Urine Drug Screen (06/15/2024 9:35 AM EDT) Urine Urine specimen obtained by clean catch procedure / Unknown 06/15/2024 9:35 AM EDT Narrative Mary Geronimo RN - 06/15/2024 9:35 AM EDT negative AMP, BAR, BUP, BZO, MILTON, FTY, MDMA, MET, MOP, MTD, OXY, PCP, TCA, THC. Lot# [id number] Exp: 11-23-25 us Kendal Crandall TELEMARKETER SUPERVISOR POINT OF CARE TEST ENTER/EDIT ORDERABLES Final Result * BI Mammogram Screening Tomosynthesis Bilateral (05/13/2024 11:30 AM EST) Anatomical Region Laterality Modality Breast Bilateral Mammography 05/13/2024 11:3 0 AM EST Narrative 05/20/2024 5:33 PM EST ? [facility] ? [address] [facility] ?[place] [address] ? Mammography Report ? Signed ? Patient: Adi,Santa ?MR#: [id number] ?? 27 ? : 1960 ?Acct:[id number] ? Age/Sex: 63 / F ?ADM Date: 02/07/25 ? Loc: HO.MAMMO ? Attending Dr: Kendal Phalen TELEMARKETER SUPERVISOR ? Ordering Physician: Kendal Crandall ?Results: 2Benig ?? n Findings ? Date of Service: 05/13/24 ?Follow Up: 1 Year From Orig ?? inal Mammogram ? Procedure(s): MM tomosynthesis screening BI ?? Accession Number(s): [id number] ? cc: Kendal Crandall TELEMARKETER SUPERVISOR ? EXAMINATION: ?? MM SCREENING DIGITAL BREAST TOMOSYNTHESIS, BILATERAL ? CLINICAL INFORMATION: ? Screening. Asymptomatic. ? COMPARISON: ?? Mammography: Comparison is made with available priors ? TECHNIQUE: ?? Digital breast mammography with tomosynthesis is performed in both the ?? craniocaudal and mediolateral oblique views along with computer-aided ?? detection (CAD). ? FINDINGS: ?? There are scattered areas of fibroglandular density (ACR BI-RADS breast ?? composition Category b). ?? Right marker clip. ?? Bilateral secretory calcifications. ?? There are no significant masses, abnormal calcifications, or other ?? abnormalities. ? MM/MM tomosynthesis screening BI ?? IMPRESSION: ?? No mammographic evidence of malignancy. ? ASSESSMENT: ? BI-RADS BI-RADS 2 - Benign Findings ? RECOMMENDATION: ?? Routine annual mammography screening. ? 1 year F/U ? This examination should not preclude the clinical evaluation of a ?? suspicious palpable abnormality. ? This patient's information was entered into a reminder system with a ?? target due date for their next mammogram. ? Electronically signed by: ??Verito Jaime DO ??05/20/2024 05:30 PM EST ?? RP ? Dictated By: ?Verito Jaime DO ? Signed By: ?<Electronically signed by Verito Jaime, DO in OV> ? 05/20/24 1730 ? DD/ 1130 ? TD/TT: 05/13/24 1152 ? Middle School Resource Teacher: ? Procedure Note Donotuseinterpreter, Image - 05/20/2024 [facility] [address] [place], [place] [address] Mammography Report Signed Patient: Santa JoshiMR#: [id number] 26 : 2Acct:[id number] Age/Sex: 63 / FADM Date: 05/13/24 Loc: HO.MAMMO Attending Dr: Kendal Crandall TELEMARKETER SUPERVISOR Ordering Physician: Kendal Crandall FNPResults: 2Benig n Findings Date of Service: 05/13/24Follow Up: 1 Year From Orig inal Mammogram Procedure(s): MM tomosynthesis screening BI Accession Number(s): [id number] cc: Kendal Crandall TELEMARKETER SUPERVISOR EXAMINATION: MM SCREENING DIGITAL BREAST TOMOSYNTHESIS, BILATERAL CLINICAL INFORMATION: Screening. Asymptomatic. COMPARISON: Mammography: Comparison is made with available priors TECHNIQUE: Digital breast mammography with tomosynthesis is performed in both the craniocaudal and mediolateral oblique views along with computer-aided detection (CAD). FINDINGS: There are scattered areas of fibroglandular density (ACR BI-RADS breast composition Category b). Right marker clip. Bilateral secretory calcifications. There are no significant masses, abnormal calcifications, or other abnormalities. MM/MM tomosynthesis screening BI IMPRESSION: No mammographic evidence of malignancy. ASSESSMENT: BI-RADS BI-RADS 2 - Benign Findings RECOMMENDATION: Routine annual mammography screening. 1 year F/U This examination should not preclude the clinical evaluation of a suspicious palpable abnormality. This patient's information was entered into a reminder system with a target due date for their next mammogram. Electronically signed by: Verito Jaime DO 05/20/2024 05:30 PM EST Dictated By: Verito Jaime DO Signed By: <Electronically signed by Verito Jaime DO in OV> 05/20/24 1730 DD/ 1130 TD/TT: 05/13/24 1152 [employer] Resource Teacher: Kendal HANSEN IMG BI PROCEDURES Edited Resul t - Final * Hepatitis C Antibody with Reflex to HCV, RNA, Quantitative, Real-Time PCR (12/15/2023 9:22 AM EDT) Hepatitis C Antibody Nonreactive Nonreactive [facility] Comment:Antibodies to HCV no t detected; does not exclude early acuteHCV infection. Blood Venous blood specimen / Unknown 12/15/2023 9:22 AM EDT 12/15/2023 2:01 PM EDT Kendal HANSEN LAB BLOOD ORDERABLES Final Res ult [facility] [address] [place] [phone] * Lipid Panel, Standard (12/15/2023 9:22 AM EDT) Triglycerides 74 <150 mg/dL [facility] Comment:Desirable Triglyceri de: less than 150 mg/dLBorderline High Triglyceride 150-199 mg/dLHigh Triglyceride: 200-499 mg/dLVery High Triglyceride: greater than or equal to 5OO mg/dL Cholesterol 143 <200 mg/dL [facility] Comment:Desirable Cholestero l: less than 200 mg/dLBorderline High Cholesterol: 200-239 mg/dLHigh Cholesterol: greater than 239 mg/dL LDL Cholesterol Calculated 68 <100 mg/dL [facility] Comment:Desirable LDL: less than 100 mg/dLNear Optimal/Above Optimal LDL: 110- 129 mg/dLBorderline High LDL: 130-159 mg/dLHigh LDL: 160-189 mg/dLVery High LDL: greater than or equal to 190 mg/dL HDL Cholesterol 61 >40 mg/dL [facility] Comment:Desirable HDL: great er than 40 mg/dL Note: This HDL assay may give artificially low results in patients with liver disease. Blood Venous blood specimen / Unknown 12/15/2023 9:22 AM EDT 12/15/2023 2:01 PM EDT us Kendal Crandall TELEMARKETER SUPERVISOR LAB BLOOD ORDERABLES Final Res ult Performing Organization Address [facility]/ZIP Co de Phone Number [facility] [address] [place] [address] [phone] * HPV mRNA E6/E7 w/Reflex to HPV Genotypes 16, 18/45 (11/03/2022 11:46 AM EDT) HPV nRNA E6/E7 Not Detected Not Detected [facility] Comment:Methodology: Transcr iption-Mediated AmplificationThis assay detects E6/E7 viral messenger RNA (mRNA) from 14high-risk HPV types (16,18,31,33,35,39,45,51,52,56,58,59,66,68).Cervical sources are required for HPV testing.If a vaginal source from a patient who has had atotal hysterectomy with removal of cervix wassubmitted, please contact the testing laboratoryfor alternative testing options.For additional information, please refer tohttp://education.TixAlert/faq/CPH646l1(This link if provided for information/educational purposes only.)THIS TEST WAS PERFORMED AT:[email or web address] [place] [phone] COOK MD HPV mRNA E6/E7 [facility] HPV 16 RNA [facility] HPV 18/45 RNA [facility] 11/03/2022 11:4 6 AM EDT 11/04/2022 9:15 AM EDT us Ekta PRADOM LAB CYTOLOGY ORDERABLES F inal Result Performing Organization Address City/[facility]/ZIP Co de Phone Number [facility] [address] [place] [address] [phone] * Pap Smear (11/03/2022 11:46 AM EDT) 11/03/2022 11:4 6 AM EDT 11/04/2022 9:15 AM EDT Narrative [facility] - 11/12/2022 1:41 PM EDT ----- ------- Name: Santa Joshi ? Age/Sex: 62/F ? : 1960 Unit#: [id number] ?? Attend Dr: EKTA RIVERA CNM ?Re11/03/22 ?Status: DEP REF ? Location: HO.CLNP ? Disch: ? ----- ------- SPEC : [id number] ?RECD: 11/04/22 ? STATUS: ??SOUT ? REQ NUM: [id number] ? DAVY: 11/03/22-114 ? SUBM DR: EKTA RIVERA CNM ? ENTERED: ??11/05/22 ?SP TYPE: Pap Smr ?OTHR : ? ORDERED: ??Pap Smear ? Interpretation ?? Satisfactory for evaluation. ?? Atrophic. ?? Negative for intraepithelial lesion or malignancy. ?HPV mRNA E6/E7: ?NOT DETECTED ? This assay detects E6/E7 viral messenger RNA (mRNA) from 14 high-risk HPV types (16, 18, ?? 31, 33, 35, 39, 45, 51, 52, 56, 58, 59, 66, 68) ?? HPV testing performed by [facility] [facility], [place], [place]. ??See reference laboratory ?? pion of the EMR for entire report. ?Clinical Information LMP: Postmenopausal Previous PAP test: Unknown date/findings ? Material Received ?? ThinPrep-Cervical ----- ------- Signed (signature on file) KENYA Kumar ([facility]) 11/12/22 1341 ? ----- ------- ? END OF REPORT ? Ekta Rivera CNM LAB CYTOLOGY ORDERABLES F inal Result Performing Organization Address City/[facility]/ZIP Co de Phone Number [facility] [address] [place] [phone] [phone] * HIV-1 RNA, Quantitative, Real-Time PCR (10/15/2022 10:55 AM EDT) [facility] HIV RNA PCR Qn Copies NOT DETECTED NOT DETECTED copies/mL [facility] HIV RNA PCR Qn Log Copies NOT DETECTED NOT DETECTED [facility] Comment:Result Units: Log co pies/mLThis test was performed using Real-Time Polymerase ChainReaction.Reportable Range: 20 copies/mL to 10,000,000 copies/mL(1.30 log copies/mL to 7.00 log copies/mL).THIS TEST WAS PERFORMED AT:[email or web address] [place] [phone] COOK MD 10/15/2022 10:5 5 AM EDT 10/15/2022 1:14 PM EDT [facility] External Provider LAB BLO OD ORDERABLES Final Result Performing Organization Address [facility]/ZIP Co de Phone Number [facility] [address] [place] [address] [phone] from Last 3 Months or Most Recently Relevant to Health Maintenance Insurance [facility] C3 * Guarantor: Santa Joshi Account Type Relation to Patient Date of Phone Billing Address Personal/Family Self [place], [place] Care Teams Pastry Baker Relationship Specialty Start Date End Date Kendal Crandall FNP [address] [place], [place] PCP - General Family Medicine 11/30/21 Seth Martinez [address] [place] [phone] Urology 02/26/24 Katia Graff MD [address] [place] [phone] Hematology and Oncology 02/26/24 Lainey Crenshaw MD [address] [place] [address] Dr [address] [place] [address] Neurology 02/28/24 Ladarius Call MD [address] [place] [address] 3rd [place] [address] Cardiology 06/06/24 Kimmie Salazar OD [address] [place] [address] Optometry 06/06/24
--- OUTSIDE RECORDS SUMMARY | 2024-08-19 10:06 | XMS_ITS | Encounter Summary ---
Author Organization [employer] Address [address] [facility] 7t [place] [address] Care Team Providers Care Home Improvement Contractor Name Role Phone Kendal Crandall Primary Care Provider Seth aMrtinez Unavailable Katia Graff MD Unavailable [phone] Lainey Crenshaw MD Unavailable Ladarius Call MD Unavailable [phone] Kimmie Salazar OD Unavailable [phone] Reason for Visit * Reason Comments Med Refill Encounter Details Date Type Department Care Team ([facility] st Contact Info) Description 02/09/2023 Refill [facility] MED & PEDS [address] [place], [place] [phone] Kendal Crandall FNP [address] [place], [place] [phone] Pain; Kidney stone Social History Tobacco Use Types Packs/Day Years [...] the past 12 months, has t he [employer], gas, oil or water [employer] threatened to shut off services in your [...] Description 09/02/2024 10:30 AM EDT Office Visit [facility] OPTOMETRY [address] [place] [address] Romelia Cavazos OD [address] [place] [address] 09/08/2024 9:30 AM EDT Clinical Support [facility] MED [facility] PEDS [address] [place] [address] Mary Geronimo, OWEN [address] [place] [address] 09/16/2024 11:15 AM EDT Office Visit [facility] MEDICINE [address] [place] [address] Dodie Nj MD [address] [place] [address] 11/11/2024 10:15 AM EDT Office Visit [facility] MED & PEDS [address] [place] [address] Kendal Crandall FNP [address] [place] [address] documented as of this encounter Visit Diagnoses Diagnosis Pain Generalized pain Kidney stone Calculus of kidney documented in this encounter Additional Health Concerns Assessment Noted Time PHQ-9 Depression Total Score: 6 12/27/19 23 2:43 PM EDT documented as of this encounter Care Teams Home Improvement Contractor Relationship Specialty Start Date End Date Kendal Crandall FNP [address] [place] [address] PCP - General Family Medicine 11/30/21 Seth [facility] [address] [phone] Urology 02/26/24 Katia Graff MD [address] [place] [address] Hematology and Oncology 02/26/24 Lainey Crenshaw MD [address] [place] [address] Dr [address] [place] [address] Neurology 02/28/24 Ladarius Call MD [address] [facility] 3rd [place] [address] Cardiology 06/06/24 Kimmie Salazar OD [address] [place] [address] Optometry 06/06/24 documented as of this encounter
--- OUTSIDE RECORDS SUMMARY | 2024-08-19 10:06 | XMS_ITS | Encounter Summary ---
Author Organization [employer] Address [address] [facility] 7t [place] [address] Care Team Providers Care Air Crew Officer Name Role Phone Kendal Crandall Primary Care Provider Seth Martinez Unavailable Katia Graff MD Unavailable [phone] Lainey Crenshaw MD Unavailable Ladarius Call MD Unavailable Kimmie Salazar OD Unavailable [phone] Reason for Visit * Reason Onset Date Comments Med Refill 09/17/2023 Encounter Details Date Type Department Care Team (Late st Contact Info) Description 09/17/2023 Telephone [facility] MEDICINE [address] [place] [address] Kendal Crandall FNP [address] [place], [place] [phone] Med Refill Social History Tobacco Use Types [...] the past 12 months, has t he [employer], gas, oil or water company threatened to [...] encounter Miscellaneous Notes * Telephone Encounter - Suellen Gordon - 09/17/2023 10:18 AM EDT TC from pt requesting medication refill. Medications needing refill : traMADol (Ultram) 50 MG tablet To be sent to: [facility]/pharmacy #[id number] [place], [place] - [address] [place] [address] AT [facility] documented in this encounter Plan of Treatment Upcoming Encounters Date Type Department Care Team ([facility] st Contact Info) Description 09/02/2024 10:30 AM EDT Office Visit [facility] OPTOMETRY [address] [place] [address] Romelia Cavazos, OD [address] [place] [address] 09/08/2024 9:30 AM EDT Clinical Support [facility] MED [facility] PEDS [address] [place] [address] Mary Geronimo, RN [address] [place] [address] 09/16/2024 11:15 AM EDT Office Visit [facility] MEDICINE [address] [place] [address] Dodie Nj MD [address] [place] [address] 11/11/2024 10:15 AM EDT Office Visit [facility] MED [facility] PEDS [address] [place] [address] Kendal Crandall FNP [address] [place] [address] documented as of this encounter Visit Diagnoses Not on filedocumented in this encounter Additional Health Concerns Assessment Noted Time PHQ-9 Depression Total Score: 6 12/27/19 23 2:43 PM EDT documented as of this encounter Care Teams Air Crew Officer Relationship Specialty Start Date End Date Kendal Crandall FNP [address] [place] [address] PCP - General Family Medicine 11/30/21 Seth Martinez [address] [phone] Urology 02/26/24 Katia Graff MD [address] [place] [address] Hematology and Oncology 02/26/24 Lainey Crenshaw MD [address] [place] [address] Dr Noel [address] [place] [address] Neurology 02/28/24 Ladarius Call MD [address] [place] [address] 3rd [place] [address] Cardiology 06/06/24 Kimmie Salazar OD [address] [place] [address] Optometry 06/06/24 documented as of this encounter
== END 2024-08-19 10:35 | disposition home or self-care (01) ==
LOC: HO.HGI 09:45
PROVIDERS: PCP Registered Nurse; Visit Provider Nurse Practitioner Family
DX: Z01.818 Encounter for other preprocedural examination (principal); Z12.11 Encounter for screening for malignant neoplasm of colon
CPT/HCPCS: 99203

== ENCOUNTER → 2024-08-19 09:45 | Outpatient (BNVA) | payer MEDICAID, SELFPAY | PROVIDERS: PCP Registered Nurse; Visit Provider Nurse Practitioner Family | DX: Z01.818 Encounter for other preprocedural examination (principal); K76.0 Fatty (change of) liver, not elsewhere classified; R74.01 Elevation of levels of liver transaminase levels | CPT/HCPCS: 99212 ==

== ENCOUNTER 2024-09-02 11:38 | Outpatient (REF) | payer MEDICAID, SELFPAY ==
--- NOTE | ~2024-09-02 | XR_ITS ---
CLINICAL HISTORY: pain rt shoulder 4 view right shoulder Comparison: None Findings: Bones intact. No dislocations. No significant loss of joint space or osteophytes. No erosions. No radiopaque foreign body. IMPRESSION: 1. No acute findings This document has been electronically signed by: Rudolph Rojo MD on 09/05/2024 10:52:38
--- OUTSIDE RECORDS SUMMARY | 2024-09-02 12:33 | XMS_ITS | Patient Health Record ---
Author Organization [facility] Address [address] [place] [address] Care Team Providers Care Makeup Sales Advisor Name Role Phone Nilsa Keita Primary Care Provider Unavailab Irving Moralez Unavailable [phone] Mihaela Olvera Unavailable [phone] Allergies Allergen (clinical drug ingredient) Drug/Non Drug Allergy documented on EMR Reaction Allergy Type Onset Date Status aspirin Aspirin Unknown Drug Allergy Active Penicillin G Proc & Benzathine Unknown Drug Allergy Active trimethobenzamide Tigan Unknown Drug Allergy Active Reason For Referral No Information Medications Medication SIG (Take, Route, Frequency, Duration) Notes Start Date End Date Status Percocet 10-325 MG 1 tablet as needed Orally every 6 hrs Not-Taking MoviPrep 100 GM as directed Orally f or 2 days 01/24/2016 Not-Taking CeleXA 10 MG 1 tab Orally Once a day Not-Taking Cymbalta 60 MG 1 capsule Orally Onc e a day Not-Taking Exforge 5-320 MG 1 tab Orally as directed Active traMADol HCl Active Lipitor 10 MG 1 tablet Orally Once a day for 30 days Active KlonoPIN 0.5 MG 1 tablet Orally Twic e a day Not-Taking Clotrimazole-Betamethaso ne 1-0.05 % 1 application to affected area Externally Twice a day Active Social History Tobacco Use: Social History Observation Description Date Details (start date - stop date) Never Smoker NA - NA Tobacco Use/Smoking Question Answer Notes Are you a nonsmoker Alcohol Screen (Audit-C) Question Answer Notes Did you have a drink containing alcohol in the p ast year? No Points 0 Interpretation Negative Problems Problem Type SNOMED Code ICD Code Onset Dates Problem Status W/U Status Risk Notes Problem 59610927 HTN (hypertensio n) (I10) Active confirmed Problem 13385523 Hyperlipidemia (E78.5) Active confirmed Problem Blood in stool (643515454) Blood in stool (K92.1) Active confirmed Problem Fatty liver (082813986) Fatty liver (K76.0) Active confirmed Plan Of Treatment Pending Test Test Name Order Date COLONOSCOPY (Use this One) 01/24/2016 Insurance Providers Payer Name Payer Address Payer Phone Subscriber Number Group Number Insured Name Patient Relationship to Insured Coverage Start Date Coverage End Date [employer] [place] [address] [place] [phone] [id number] [facility] Self - patient is the insured Medical (General) History Medical History History ICD Code hypertention thyroid depression Surgical History Surgery Date(Month/Year) Back surgery stomach surgery-4 times neck surgery-2 times kidney surgery with lazer colon/egd 2011 colonoscopy - dr lee 02/07/16 Hospitalization History Reason Date(Month/Year) see surgeries
[2024-09-02 13:24] LABS: Alanine Aminotransferase 31 U/L (0-31); Albumin Level 4.3 g/dL (3.5-5.0); Alkaline Phosphatase 108 U/L (39-117); Aspartate Amino Transferase 42 U/L (5-31); Bilirubin Direct 0.4 mg/dL (0.0-0.5)
[2024-09-07 17:24] LABS: FIB-ALT 23 U/L (6-29); FIB-Alpha-2-Macroglobulin 358 mg/dL (106-279); FIB-Apolipoprotein A1 169 mg/dL (101-198); FIB-GGT 49 U/L (3-65); FIB-Haptoglobin 81 mg/dL (43-212); FIB-Total Bilirubin 0.8 mg/dL (0.2-1.2); Liver Fibrosis Score 0.63; Liver Fibrosis Stage F3; Nec Inflam Act Grade A0; Nec Inflam Act Score 0.15
== END 2024-09-02 11:39 | disposition home or self-care (01) ==
LOC: HO.XRAY 11:38
PROVIDERS: Absent Provider Registered Nurse; PCP Registered Nurse; Visit Provider Nurse Practitioner Family
DX: K76.0 Fatty (change of) liver, not elsewhere classified (principal); R74.01 Elevation of levels of liver transaminase levels; M25.511 Pain in right shoulder
CPT/HCPCS: 36415; 73030; 80076; 81596

== ENCOUNTER → 2024-09-02 11:44 | Outpatient (BNV) | payer MEDICAID, SELFPAY | PROVIDERS: Absent Provider Registered Nurse; PCP Registered Nurse; Visit Provider Radiology Diagnostic Radiology | DX: M25.511 Pain in right shoulder (principal) | CPT/HCPCS: 73030 ==